=== PATIENT | male | born 1970 | race Caucasian/White ===

== ENCOUNTER 2017-01-26 01:28 | Inpatient (IN) | payer BC ==
[~2017-01-26] VITALS: Ht 185.4 cm; Wt 56.7 kg
[~2017-01-26 01:28] MED LIST: Acetaminophen PO; BUPR200T PO; CALC0.5C2 PO; LABE100T PO; METH10TA2 PO; NEFA100T PO; SEVE800T8 PO; SUCR1TAB26 PO
[2017-01-26] MEDS ORDERED: METR500T PO (02:11)
--- NOTE | 2017-01-26 02:53 | NUR ---
PT OUT OF UNIT FOR CT SCAN VIA WHEELCHAIR
--- NOTE | 2017-01-26 03:01 | NUR ---
PT BBACK FROM CT SCAN WITH NO DISTRESS NOTED
[2017-01-26 03:02] LABS: BASOPHILS # (AUTO) 0.1 K/uL (0.0-0.2); BASOPHILS % (AUTO) 0.9 % (0.0-2.0); EOSINOPHILS # (AUTO) 0.5 K/uL (0.0-0.7); EOSINOPHILS % (AUTO) 7.2 % (0.0-7.0); HEMATOCRIT 32.7 % (40.0-50.0); HEMOGLOBIN 11.1 g/dL (14.0-18.0); LYMPHOCYTES # (AUTO) 1.9 K/uL (0.8-4.8); LYMPHOCYTES % (AUTO) 31.1 % (20.5-51.5); MEAN CORPUSCULAR HEMOGLOBIN 29.5 uug (27.0-31.0); MEAN CORPUSCULAR HGB CONC 34 g/dL (32.0-37.0); MEAN CORPUSCULAR VOLUME 86.7 fL (82.0-92.0); MONOCYTES # (AUTO) 0.7 K/uL (0.1-1.30); MONOCYTES % (AUTO) 10.5 % (0.0-11.0); NEUTROPHILS # (AUTO) 3.1 K/uL (1.8-8.9); NEUTROPHILS % (AUTO) 50.3 % (38.5-71.5); PLATELET COUNT (AUTO) 287 K/uL (150-450); RED BLOOD CELL COUNT(AUTO) 3.78 MIL/uL (4.70-6.10); RED CELL DISTRIBUTION WIDTH 14.1 % (11.5-14.5); WHITE BLOOD COUNT (AUTO) 6.3 K/uL (4.0-11.2)
[2017-01-26 03:12] LABS: ALBUMIN 3.3 g/dL (3.4-5.0); BILIRUBIN,DIRECT 0.1 mg/dL (0.0-0.2); BILIRUBIN,TOTAL 0.4 mg/dL (0.2-1.0); CALCIUM 8.5 mg/dL (8.5-10.1); CREATININE 6.8 mg/dL (0.6-1.3); POTASSIUM 4.5 mmol/L (3.5-5.1); TOTAL PROTEIN, SERUM 6.5 g/dL (6.4-8.2)
--- NOTE | 2017-01-26 04:27 | NUR ---
[facility], spoke with cager operator Jessica, who states will have Carolina lama....
--- NOTE | 2017-01-26 04:42 | NUR ---
Pt. admitted to telemetry , under care of Dr. Figueroa,Belongs List completed, pt is alert, oriented x 4, no resp distress noted or reported upon transfer assessment.... pt transferred via gurney...
[2017-01-26] MEDS ORDERED: ONDANSETRON 4 MG/2 ML VIAL IV ONE (04:45)
[2017-01-26] MEDS ORDERED: MORPHINE SULFATE 4 MG/1 ML DISP.SYRIN IV ONE (04:45)
[2017-01-26] MEDS ORDERED: ONDANSETRON 4 MG/2 ML VIAL ONE (04:52)
[2017-01-26] MEDS ORDERED: MORPHINE SULFATE 4 MG/1 ML DISP.SYRIN ONE (04:52)
[2017-01-26] MEDS ORDERED: CLONIDINE HCL 0.1 MG TABLET PO ONE (05:30)
[2017-01-26] MEDS ORDERED: CLONIDINE HCL 0.1 MG TABLET ONE (05:39)
--- NOTE | 2017-01-26 05:55 | NUR ---
Received pt from ER, report given by KEL Aguilar.Pt sitting comfortably in the hospital bed. AOX3, ambulatory. On peritoneal dialysis, pt takes care of it at home.Urostomy at RLQ area, ostomy appears pinkish red in color.Cleansed the site (PD area and urostomy area) with NS, patted dry with sterile gauze, secured sterile dressing. Taken a picture and secured it in the chart. Lung sounds clear, heart sounds bounding and clear.
[2017-01-26 06:00] VITALS: BP 142/105
--- NOTE | 2017-01-26 07:30 | NUR ---
Report to FatoumataRN at the bedside, pt resting comfortably. Denies any pain at the moment (before he went to sleep) but requested for pain medicine (he takes Methadone at home) as PRN basis.BP is 150's (SBP) upon admission.
--- NOTE | 2017-01-26 08:00 | NUR ---
AWAKE ALERT COOPERATE WELL NO PAIN EAT BREAKFAST WITH GOOD APPETITE , ON FALL PRECAUTION CALL HORAN IN REACH
[2017-01-26] MEDS ORDERED: ACETAMINOPHEN 325 MG TABLET PO PRN (08:15)
[2017-01-26] MEDS ORDERED: ONDANSETRON 4 MG/2 ML VIAL IV PRN (08:15)
[2017-01-26] MEDS: CALCITRIOL 0.25 MCG CAPSULE PO SCH ×2 (08:50→17:01)
[2017-01-26] MEDS: LABETALOL HCL 100 MG TABLET PO SCH ×2 (08:50→17:01)
[2017-01-26] MEDS: METRONIDAZOLE 500 MG TABLET PO SCH ×3 (08:50→17:01)
[2017-01-26] MEDS ORDERED: MISCELLANEOUS MED XX SCH (09:00)
--- NOTE | 2017-01-26 09:00 | NUR ---
DR GONZALEZ SEE PATIENT AND LAB RESULT AND ORDER IN CHART
[2017-01-26] MEDS: METHADONE HCL 10 MG TABLET PO SCH ×2 (09:14→17:01)
[2017-01-26] MEDS: buPROPion SR 100 MG TABLET.SA PO SCH ×2 (09:14→20:51)
[2017-01-26 11:52] VITALS: BP 145/96
[2017-01-26] MEDS: SEVELAMER CARBONATE 800 MG TABLET PO SCH ×2 (12:38→17:01)
[2017-01-26] MEDS: SUCRALFATE 1 G TABLET PO SCH ×3 (12:38→20:50)
--- NOTE | 2017-01-26 14:00 | NUR ---
DR GONZALEZ WAS CALL REGARDING OWN MEDIOCINE AND NEW ORDER IN CHART
[2017-01-26 16:21] VITALS: BP 140/94
--- NOTE | 2017-01-26 17:00 | NUR ---
RESTING WELL NO SOB OR RESPIRATORY DISTRESS PAIN UNDER CONTROL HEMODYNAMIC STATUS STABLE CALL LIGHT WITHIN REACH AND INSTRUCTION TO USE WHEN NEED
[2017-01-26 19:00] VITALS: BP 146/95
--- NOTE | 2017-01-26 19:10 | NUR ---
Received report from KEL Ham.
--- NOTE | 2017-01-26 20:00 | NUR ---
Pt resting on his hospital bed. Awake and using his cell phone. Pt is getting ready for his Peritoneal dialysis.
--- NOTE | 2017-01-26 21:00 | NUR ---
Peritoneal dialysis started. Pt stated that his been doing this for more than a year now.
[2017-01-26] MEDS: HYDROMORPHONE 1 MG/1 ML DISP.SYRIN IV PRN (21:04)
--- NOTE | 2017-01-26 23:00 | NUR ---
Pt lying down on his bed, watching TV.He said its just hard to get asleep. Denies any pain. Encouraged to call for assistance or if he needs anything for pain, verbalized understanding.
[2017-01-27 00:01] VITALS: BP 145/95
[2017-01-27] MEDS: HYDROMORPHONE 1 MG/1 ML DISP.SYRIN IV PRN ×3 (01:29→20:05)
--- NOTE | 2017-01-27 01:30 | NUR ---
Pt requested for pain medicine, given Dilaudid .5mg/IVP, prepared pt to sleep, stretched linens, made him comfortable, took his things from his bed, placed in the chair.covered him with warm blanket.
--- NOTE | 2017-01-27 02:00 | NUR ---
Urostomy drained 500mls, miguel angel color urine. Peritoneal dialysis output was 1850 mls.
--- NOTE | 2017-01-27 03:30 | NUR ---
Pt resting /sleeping comfortably.
[2017-01-27 04:00] VITALS: BP 142/90
--- NOTE | 2017-01-27 05:00 | NUR ---
Resting/sleeping comfortably.Checking and monitoring periodically.
--- NOTE | 2017-01-27 07:18 | NUR ---
Pt remained asleep, breathing normally, given report to KEL Ham.
--- NOTE | 2017-01-27 08:00 | NUR ---
SLEPT WELL NO RESPIRATORY DISTRESS NO SOB OR PAIN ON FALL PRECAUTION CALL HORAN IN REACH
--- NOTE | 2017-01-27 08:30 | NUR ---
AWAKE AND EAT BREAKFAST WELL DR GONZALEZ SEEN PATIENT THIS AM NO NEW ORDER
[2017-01-27] MEDS: SUCRALFATE 1 G TABLET PO SCH ×4 (08:43→20:05)
[2017-01-27] MEDS: SEVELAMER CARBONATE 800 MG TABLET PO SCH ×3 (08:43→17:15)
[2017-01-27] MEDS: METHADONE HCL 10 MG TABLET PO SCH ×2 (08:44→17:16)
[2017-01-27] MEDS: METRONIDAZOLE 500 MG TABLET PO SCH ×3 (08:44→17:15)
[2017-01-27] MEDS: CALCITRIOL 0.25 MCG CAPSULE PO SCH ×2 (08:44→17:15)
[2017-01-27] MEDS: buPROPion SR 100 MG TABLET.SA PO SCH ×2 (08:44→20:05)
[2017-01-27] MEDS: LABETALOL HCL 100 MG TABLET PO SCH (08:45)
[2017-01-27] MEDS: NEFAZODONE PO SCH (08:45)
[2017-01-27 15:46] VITALS: BP 140/95
--- NOTE | 2017-01-27 16:30 | NUR ---
DR CAMARA SEE PATIENT AND TELE WAS DISCONTINUE
[2017-01-27] MEDS: CARVEDILOL 12.5 MG TABLET PO SCH (17:35)
--- NOTE | 2017-01-27 18:00 | NUR ---
RESTING HEMODYNAMIC STATUS STABLE ,PAIN UNDER CONTROL CALL HORAN WITHIN REACH
[2017-01-27 19:00] VITALS: BP 140/96
--- NOTE | 2017-01-27 19:00 | NUR ---
AWAKE ALERTX3 COMPLAINED OF GEN PAIN, DILAUDID .5 MG GIVEN
[2017-01-28] MEDS: HYDROMORPHONE 1 MG/1 ML DISP.SYRIN IV PRN ×2 (02:01→11:00)
[2017-01-28 04:00] VITALS: BP 141/87
--- NOTE | 2017-01-28 06:14 | NUR ---
SLEPT AT INTERVALS,COMPLAINED OF ABDOMINAL PAIN DILAUDID .5 MG GIVEN RELIEVED SLEPT AFTER.
[2017-01-28] MEDS: buPROPion SR 100 MG TABLET.SA PO SCH (08:12)
[2017-01-28] MEDS: CALCITRIOL 0.25 MCG CAPSULE PO SCH (08:12)
[2017-01-28] MEDS: SUCRALFATE 1 G TABLET PO SCH ×2 (08:12→11:00)
[2017-01-28] MEDS: SEVELAMER CARBONATE 800 MG TABLET PO SCH ×2 (08:14→11:00)
[2017-01-28] MEDS: METHADONE HCL 10 MG TABLET PO SCH (08:14)
[2017-01-28] MEDS: METRONIDAZOLE 500 MG TABLET PO SCH ×2 (08:14→12:05)
[2017-01-28] MEDS: CARVEDILOL 12.5 MG TABLET PO SCH (08:14)
[2017-01-28] MEDS: NEFAZODONE PO SCH (08:16)
[2017-01-28] MEDS ORDERED: CARV12.52 PO (08:50)
[2017-01-28 11:28] VITALS: BP 155/104
--- NOTE | 2017-01-28 11:45 | NUR ---
Patient resting comfortably in bed in no acute distress after pain med given earlier today. Independently taking care of his own peritoneal dialysis. Ordered to be discharged today.Safety and comfort provided by staff.
[2017-01-28 15:46] VITALS: BP 154/106
--- NOTE | 2017-01-28 15:58 | NUR ---
Pt c/o low back pain during early afternoon. Medicated as ordered with relief. Discharge instructions given and with copies given to patient. Urostomy and peritoneal dressings changed prior to discharge. Both sites unremarkable.Photos taken and placed on chart. All belongings accounted for. Discharged home by car. Taken to car by w/c in no acute distress or c/o pain.
== END 2017-01-28 15:58 | disposition home or self-care (01) | DRG 683 ==
LOC: ER 01:44 → TELE 04:33 → MED 01-27 17:37
PROVIDERS: ADMIT Internal Medicine; ATTEND Internal Medicine
DX: I12.9 Hypertensive chronic kidney disease with stage 1 through stage 4 chronic kidney disease, or unspecified chronic kidney disease (principal); I31.3 Pericardial effusion (noninflammatory); I42.9 Cardiomyopathy, unspecified; N25.81 Secondary hyperparathyroidism of renal origin; N13.30 Unspecified hydronephrosis; N18.6 End stage renal disease; K21.9 Gastro-esophageal reflux disease without esophagitis; N25.0 Renal osteodystrophy; F32.9 Major depressive disorder, single episode, unspecified; G89.29 Other chronic pain; D64.9 Anemia, unspecified; Z87.440 Personal history of urinary (tract) infections; Z79.899 Other long term (current) drug therapy; Z99.2 Dependence on renal dialysis
CPT/HCPCS: 36415; 70030-TC; 71250; 85025; 85730; 93005; 93307; A4663; J1170; J2270; J2405

== ENCOUNTER 2017-05-18 18:48 | Inpatient (IN) | payer BC ==
[~2017-05-18] VITALS: Ht 185.4 cm; Wt 55.0 kg
[~2017-05-18 18:48] MED LIST changes: +CARV12.52 PO; -LABE100T PO; +METR500T PO; -SUCR1TAB26 PO; +SUCR1TAB31 PO
[2017-05-18] MEDS ORDERED: CIPR500T5 PO (19:00)
[2017-05-18] MEDS ORDERED: ONDA4TAB8 SL (19:01)
[2017-05-18] MEDS ORDERED: OXYCODONE/APAP 5-325 MG TABLET PO ONE (19:15)
[2017-05-18] MEDS ORDERED: ONDANSETRON 4 MG/2 ML VIAL IV ONE (19:15)
[2017-05-18] MEDS ORDERED: IV NORMAL SALINE 1000 ML BAG IV ONE (19:15)
[2017-05-18] MEDS ORDERED: CEFTRIAXONE 1 G in IV DEXTROSE 5% 50 ML IV ONE (19:15)
[2017-05-18] MEDS ORDERED: OXYCODONE/APAP 5-325 MG TABLET ONE (19:40)
[2017-05-18] MEDS ORDERED: CEFTRIAXONE 1 G VIAL ONE (19:41)
[2017-05-18] MEDS ORDERED: ONDANSETRON 4 MG/2 ML VIAL ONE (19:41)
[2017-05-18 19:53] LABS: BASOPHILS % (AUTO) 0.9 % (0.0-2.0); EOSINOPHILS # (AUTO) 0.3 K/uL (0.0-0.7); HEMATOCRIT 37.1 % (40-50); HEMOGLOBIN 12.2 G/DL (14.0-18.0); LYMPHOCYTES # (AUTO) 1.3 K/UL (0.8-4.8); LYMPHOCYTES % (AUTO) 23.7 % (20.5-51.5); MEAN CORPUSCULAR HEMOGLOBIN 29.2 UUG (27.0-31.0); MEAN CORPUSCULAR HGB CONC 33 g/dL (32.0-37.0); MEAN CORPUSCULAR VOLUME 88.6 FL (82.0-92.0); MONOCYTES # (AUTO) 0.6 K/UL (0.1-1.30); MONOCYTES % (AUTO) 10.7 % (0.0-11.0); NEUTROPHILS # (AUTO) 3.1 K/UL (1.8-8.9); NEUTROPHILS % (AUTO) 59.7 % (38.5-71.5); PLATELET COUNT (AUTO) 354 K/UL (150-450); RED BLOOD CELL COUNT(AUTO) 4.19 MIL/UL (4.7-6.1); WHITE BLOOD COUNT (AUTO) 5.3 K/UL (4.0-11.2)
[2017-05-18 19:56] LABS: POTASSIUM 4.8 mmol/L (3.5-5.1)
--- NOTE | 2017-05-18 19:58 | NUR ---
Pt to room c/o dizziness, vomiting and intermittent sharp abd pain. Pt seen by MD. IV established, labs drawn and sent. Perotineal fluid collected and sent. UA collected and sent. EKG obtained and given to Dr. Ayoub. Pt medicated for pain and nausea, will monitor for effects of medication. Fluid bolus infusing freely to gravity. ABT infusion started, will monitor for any adverse reactions. Pt refused chest xray. Dr. Ayoub notified. Pt resting in position of comfort for self.
[2017-05-18 20:13] LABS: BILIRUBIN,DIRECT 0.1 mg/dL (0.0-0.2); BILIRUBIN,TOTAL 0.4 mg/dL (0.2-1.0); TOTAL PROTEIN, SERUM 7.3 g/dL (6.4-8.2)
[2017-05-18 20:23] LABS: CREATININE 8.2 mg/dL (0.6-1.3)
[2017-05-18 20:29] LABS: *CLARITY,URINE CLOUDY (CLEAR); *COLOR,URINE YELLOW (YELLOW); *PROTEIN,URINE 2+ (NEGATIVE); PH,URINE 8.5 (5.0-8.0); UGLUCOSE NEGATIVE (NEGATIVE)
[2017-05-18 20:30] LABS: *BILIRUBIN,URIN NEGATIVE (NEGATIVE); *BLOOD, URINE 2+ (NEGATIVE); *KETONES,URINE NEGATIVE (NEGATIVE); *UROBILINOGEN,URINE 0.2 E.U./dl (NORMAL); LEUKOCYTE ESTERASE ,URINE 2+ (NEGATIVE); NITRITE, URINE NEGATIVE (NEGATIVE)
[2017-05-18 20:42] LABS: MAGNESIUM 1.9 mg/dL (1.8-2.4); PHOSPHOROUS 4.9 mg/dL (2.5-4.9)
[2017-05-18 20:43] LABS: BACTERIA,URINE MANY /HPF (NONE SEEN); MUCUS,URINE MODERATE /LPF (0-FEW)
[2017-05-18 20:45] LABS: WBC,URINE 20-50 /HPF (0-3)
--- NOTE | 2017-05-18 21:04 | NUR ---
Pt conts to c/o severe abd pain. Dr. Ayoub notified. Awaiting further orders
[2017-05-18] MEDS ORDERED: NITROFURANTOIN/NITROFURAN MAC 100 MG CAPSULE PO ONE (21:15)
[2017-05-18] MEDS ORDERED: HYDROMORPHONE HCL 2 MG TABLET PO ONE (21:30)
--- NOTE | 2017-05-18 21:36 | NUR ---
Pt medicated for discomfort. Will monitor for effects of medication. Pt resting in position of comfort for self.
[2017-05-18] MEDS ORDERED: NITROFURANTOIN/NITROFURAN MAC 100 MG CAPSULE ONE (21:39)
[2017-05-18] MEDS ORDERED: HYDROMORPHONE HCL 2 MG TABLET ONE (21:39)
--- NOTE | 2017-05-18 21:44 | NUR ---
Rickey cuenca paged for Dr. Ayoub
--- NOTE | 2017-05-18 22:30 | NUR ---
second page for V.I.P quality control clerk
--- NOTE | 2017-05-18 22:41 | NUR ---
Dr. Ayoub spoke with Dr. Myles. Dr. Ayoub notified of pts blood pressure. Awaiting further orders.
[2017-05-18] MEDS ORDERED: ENALAPRILAT DIHYDRATE 1.25 MG/1 ML VIAL IV ONE ×2 (22:45→22:57)
[2017-05-18] MEDS ORDERED: CLONIDINE HCL 0.1 MG TABLET PO ONE (22:45)
--- NOTE | 2017-05-18 22:49 | NUR ---
Pt medicated for elevated blood pressure, will monitor for effects of medication
[2017-05-18] MEDS ORDERED: CLONIDINE HCL 0.1 MG TABLET ONE (22:56)
[2017-05-18] MEDS ORDERED: LABETALOL HCL 100 MG/20 ML VIAL IV ONE (23:15)
--- NOTE | 2017-05-18 23:18 | NUR ---
MD notified of pts cont elevated bp. Awaiting further orders.
[2017-05-18] MEDS ORDERED: LABETALOL HCL 100 MG/20 ML VIAL ONE (23:32)
[2017-05-19] MEDS ORDERED: HYDROMORPHONE 1 MG/1 ML DISP.SYRIN IV ONE (00:15)
[2017-05-19] MEDS ORDERED: LABETALOL HCL 100 MG/20 ML VIAL IV ONE (00:15)
--- NOTE | 2017-05-19 00:15 | NUR ---
BP remains elevated and pt c/o pain getting worse. MD notified. Pt medicated for pain and elevated bp. Will monitor for effects of medication. Pt resting in position of comfort for self.
[2017-05-19] MEDS ORDERED: HYDROMORPHONE 1 MG/1 ML DISP.SYRIN ONE ×2 (00:19→05:28)
--- NOTE | 2017-05-19 01:05 | NUR ---
PER SPECIAL EDUCATION PARA PROFESSIONAL, QUANG GARCÍA...
--- NOTE | 2017-05-19 01:30 | NUR ---
Pt resting in position of comfort for self. Sts pain improving with medication.
--- NOTE | 2017-05-19 02:21 | NUR ---
BP remains elevated. Dr. Ayoub calling answering service to reach Dr. Myles.
--- NOTE | 2017-05-19 02:23 | NUR ---
Dr. Ayoub spoke with Dr. Myles and pt upgraded to [facility] for elevated blood pressure
[2017-05-19] MEDS ORDERED: CLONIDINE HCL 0.1 MG TABLET PO ONE (02:30)
[2017-05-19] MEDS ORDERED: CLONIDINE HCL 0.1 MG TABLET ONE (02:55)
--- NOTE | 2017-05-19 03:18 | NUR ---
Report called to KEL Vidal. Preparing to transfer pt to the floor.
--- NOTE | 2017-05-19 03:30 | NUR ---
Received admission report from KEL Holland
[2017-05-19 03:54] VITALS: BP 168/98
[2017-05-19] MEDS ORDERED: hydrALAZINE HCL 20 MG/1 ML VIAL IV PRN (05:00)
[2017-05-19] MEDS ORDERED: HYDROMORPHONE 1 MG/1 ML DISP.SYRIN IV PRN (05:00)
--- NOTE | 2017-05-19 05:06 | NUR ---
Admitted patient to [facility] as Md ordered. Pt AAO x 3 ambulatory and able to make needs known. Routine admission care done. Plan of care initiated.
--- NOTE | 2017-05-19 05:25 | NUR ---
Medicated for pain as ordered. Snack provided as requested, consumed 100%. Will monitor.
--- NOTE | 2017-05-19 08:00 | NUR ---
asleep but arouses easily. states pain tolerable at this time, wanted to sleep for now- will have breakfast later, tele SR 70's, expalined plan of care- verbalized understanding, peritoneal dialysis in place. pt takes care of his own dialysis, urostomy tube draining yellow urine, call light within reach
[2017-05-19 08:01] VITALS: BP 144/90
[2017-05-19] MEDS: SEVELAMER CARBONATE 800 MG TABLET PO SCH ×3 (08:44→18:49)
[2017-05-19] MEDS: CALCITRIOL 0.25 MCG CAPSULE PO SCH ×2 (08:45→17:30)
[2017-05-19] MEDS: buPROPion SR 100 MG TABLET.SA PO SCH ×2 (08:45→18:52)
--- NOTE | 2017-05-19 08:45 | NUR ---
states will not take routine methadone but will take his iv pain med instead, Dr Myles here visiting
[2017-05-19] MEDS: METHADONE HCL 10 MG TABLET PO SCH ×2 (08:50→20:42)
[2017-05-19] MEDS ORDERED: CIPROFLOXACIN HCL 250 MG TABLET PO SCH (09:00)
[2017-05-19] MEDS ORDERED: NEFAZODONE HCL 100 MG PO SCH (09:00)
[2017-05-19] MEDS: HYDROMORPHONE 1 MG/1 ML DISP.SYRIN IM PRN ×3 (09:06→19:32)
--- NOTE | 2017-05-19 09:06 | NUR ---
medicated for c/o right flank pain with Dilaudid 0.5mg iv as prn
[2017-05-19] MEDS: NEFAZODONE PO SCH (09:44)
[2017-05-19] MEDS ORDERED: GENTAMICIN SULFATE INJ 80 MG in IV DEXTROSE 5% 50 ML IV ONE (10:30)
[2017-05-19] MEDS ORDERED: VANCOMYCIN IV 1,250 MG in IV DEXTROSE 5% 500 ML IV ONE (11:00)
--- NOTE | 2017-05-19 11:02 | NUR ---
PHARMACY NOTES; VANCOMYCIN AND GENTAMICIN DOSING Subjective: 46 yo male; doing self peritoneal dialysis ; MD ordered abx for possible UTI (pt is complaining of abdominal pain over the right kidney) one dose of vancomycin and one dose of gentamicin Objective : BUN/SCR 84/8.2; TEMP 97.8; WBC 5.3; dosing wt 121 lbs Assessment/plan: will dose vancomycin loading dose of 23mg/kg ~ 1250 mg x 1 and Gentamicin 1.5 mg/kg ~ 80 mg x 1 . Data suggest to re-measure in 7 days and if levels within therapeutic range continue with 17mg/kg of vanco and 1mg/kg of gent.
--- NOTE | 2017-05-19 11:30 | NUR ---
iv Abx gentamycin given - no reaction noted, tolerated well
[2017-05-19 11:54] VITALS: BP 143/91
[2017-05-19] MEDS ORDERED: GENTAMICIN SULFATE 20 MG/2 ML VIAL IV ONE (13:00)
[2017-05-19] MEDS ORDERED: ONDANSETRON ODT 4 MG TAB.RAPDIS SL PRN (14:00)
--- NOTE | 2017-05-19 14:00 | NUR ---
iv vancomycin completed, no reaction noted
[2017-05-19 16:34] VITALS: BP 153/91
--- NOTE | 2017-05-19 17:41 | NUR ---
pt starting to do his peritoneal dialysis, states will eat dinner later and take his Renvela later when he eats
--- NOTE | 2017-05-19 18:55 | NUR ---
resting in bed, no distress noted, states Wellbutrin takes them at 0800 and 1500 and if he takes them late, he wouldn't be able to sleep at nite requested now and gave it, on his last bag form his peritonfeal dialysis- tolerating well, all needs attended and met, call light within reach, was medicated with Dilaudid 0.5 mg iv x 2 this shift
--- NOTE | 2017-05-19 19:10 | NUR ---
Bedside reporting with KEL Roberts. Patient awake, on bed having Peritoneal dialysis. Complaint a tolerable pain at this time. Urostomy intact, patent with moderate amount of clear yellow output. Continue care as planned.
--- NOTE | 2017-05-19 19:32 | NUR ---
Dilaudid given for complaint of kidney pain in scale 8/10. Will monitor effect.
--- NOTE | 2017-05-19 19:39 | NUR ---
BP 164/99. Pt denies s/s of hypertension. Apresoline given as needed and ordered. Will monitor effect.
--- NOTE | 2017-05-19 19:47 | NUR ---
Patient was given prune juice for complaint of no BM x 2 days. Will monitor.
[2017-05-19 20:00] VITALS: BP 164/99
--- NOTE | 2017-05-19 21:24 | NUR ---
Patient complaining of severe headache, VS rechecked 164/95, 81, 20 100% 98.1. Assisted turning and repositioning for comfort. Patient claimed that maybe he did the dialysis too fast. He claimed that he is using machine at home and rate was controlled. Will monitor since he refused any pharmaceutical remedy at this time.
[2017-05-20] VITALS: BP 141/89
[2017-05-20] MEDS: HYDROMORPHONE 1 MG/1 ML DISP.SYRIN IM PRN ×2 (00:10→09:04)
[2017-05-20] MEDS: ACETAMINOPHEN 325 MG TABLET PO PRN ×2 (03:22→08:01)
[2017-05-20 03:32] VITALS: BP 143/87
--- NOTE | 2017-05-20 03:36 | NUR ---
0010 Pain medication given this time, complaining of right lower abdomenal pain. Continue to monitor.
--- NOTE | 2017-05-20 05:48 | NUR ---
Still sleeping at this time. Medicated 3x for pain with relief. No further complaint presented. BP controlled by Apresoline. Peritoneal dialysis performed independently without any complication and well tolerated with 3750cc output per patient. All needs attended and met. No significant event reported all night.
--- NOTE | 2017-05-20 07:06 | NUR ---
Bedside reporting with KEL Gates
--- NOTE | 2017-05-20 07:25 | NUR ---
RECEIVED REPORT FROM SALES DONOR RECRUITMENT REPRESENTATIVE NURSE, PATIENT IN BED, INTERMITTENTLY SLEEPING. PATIENT BECAME AGITATED THAT THE IV IN IN ANTECUBITAL AREA IS CAUSING HIM STRESS, AND THAT HE HAD A HEADACHE. MEDICATIONS ADMINISTERED FOR HEADACHE, AND A NEW IV STARTED ON RIGHT FOREARM.
[2017-05-20] MEDS: SEVELAMER CARBONATE 800 MG TABLET PO SCH ×2 (08:00→12:00)
[2017-05-20] MEDS: CALCITRIOL 0.25 MCG CAPSULE PO SCH (08:00)
[2017-05-20] MEDS: buPROPion SR 100 MG TABLET.SA PO SCH (08:00)
[2017-05-20] MEDS: METHADONE HCL 10 MG TABLET PO SCH (08:02)
[2017-05-20] MEDS: NEFAZODONE PO SCH (08:02)
--- NOTE | 2017-05-20 09:00 | NUR ---
PATIENT VERY FRUSTRATED THAT HE HAS A HEADACHE THAT IS NOT RELIEVED BY TYLENOL GIVEN. PATIENT ASKED FOR DILAUDID AFTER ONE EPISODE OF EMESIS.
[2017-05-20 11:13] VITALS: BP 177/97
--- NOTE | 2017-05-20 12:58 | NUR ---
PATIENT HAS BEEN DISCHARGED, BLOOD PRESSURE HAS REDUCED FROM PRIOR ELEVATED LEVEL, AND HEADACHE IS "MOSTLY GONE" REPORTED BY PATIENT.
--- NOTE | 2017-05-20 13:11 | NUR ---
PATIENT HAS BEEN TRANSPORTED TO [facility] BY VOLUNTEER AT 1311 AND HAS LEFT THE UNIT.
== END 2017-05-20 13:15 | disposition home or self-care (01) | DRG 371 ==
LOC: ER 18:49 → MED 21:55 → TELE-TD 05-19 03:01 → MED 05-20 09:11
PROVIDERS: ADMIT Internal Medicine; ATTEND Internal Medicine
DX: K65.9 Peritonitis, unspecified (principal); N18.6 End stage renal disease; I13.11 Hypertensive heart and chronic kidney disease without heart failure, with stage 5 chronic kidney disease, or end stage renal disease; N39.0 Urinary tract infection, site not specified; D64.9 Anemia, unspecified; K21.9 Gastro-esophageal reflux disease without esophagitis; Z99.2 Dependence on renal dialysis; Z79.891 Long term (current) use of opiate analgesic; Z79.899 Other long term (current) drug therapy; G89.4 Chronic pain syndrome; Z98.890 Other specified postprocedural states
CPT/HCPCS: 36415; 83690; 83735; 84100; 85025; 87070; 87086; 87205; 93005; J0360; J0696; J1170; J1580; J2405; J3370; J3490; J7030; J7060; Q0162

== ENCOUNTER 2017-06-17 16:59 | Emergency (ER) | payer BC ==
[~2017-06-17] VITALS: Ht 185.4 cm; Wt 53.5 kg
[~2017-06-17 16:59] MED LIST changes: -CARV12.52 PO; +CIPR500T5 PO; -METR500T PO; +ONDA4TAB8 SL; -SUCR1TAB31 PO
[2017-06-17] MEDS ORDERED: METR500T PO (17:20)
[2017-06-17] MEDS ORDERED: LABE300T PO (17:20)
[2017-06-17] MEDS ORDERED: HYDR4TAB4 PO (17:20)
[2017-06-17] MEDS ORDERED: MECLIZINE HCL 25 MG TABLET PO ONE (17:30)
[2017-06-17] MEDS ORDERED: LORAZEPAM 2 MG/1 ML VIAL IV ONE (17:30)
[2017-06-17 17:50] LABS: BASOPHILS % (AUTO) 1.1 % (0.0-2.0); EOSINOPHILS # (AUTO) 0.3 K/uL (0.0-0.7); EOSINOPHILS % (AUTO) 5.9 % (0.0-7.0); HEMATOCRIT 36.8 % (40-50); HEMOGLOBIN 11.9 G/DL (14.0-18.0); LYMPHOCYTES # (AUTO) 1.3 K/UL (0.8-4.8); LYMPHOCYTES % (AUTO) 30.5 % (20.5-51.5); MEAN CORPUSCULAR HEMOGLOBIN 28.9 UUG (27.0-31.0); MEAN CORPUSCULAR HGB CONC 32 g/dL (32.0-37.0); MEAN CORPUSCULAR VOLUME 89.8 FL (82.0-92.0); MONOCYTES # (AUTO) 0.4 K/UL (0.1-1.30); NEUTROPHILS # (AUTO) 2.3 K/UL (1.8-8.9); NEUTROPHILS % (AUTO) 52.5 % (38.5-71.5); PLATELET COUNT (AUTO) 286 K/UL (150-450); WHITE BLOOD COUNT (AUTO) 4.3 K/UL (4.0-11.2)
[2017-06-17 18:01] LABS: BILIRUBIN,DIRECT 0.1 mg/dL (0.0-0.2); BILIRUBIN,TOTAL 0.4 mg/dL (0.2-1.0); PHOSPHOROUS 6.4 mg/dL (2.5-4.9); TOTAL PROTEIN, SERUM 6.4 g/dL (6.4-8.2)
[2017-06-17] MEDS ORDERED: LORAZEPAM 2 MG/1 ML VIAL ONE (18:01)
[2017-06-17 18:02] LABS: CREATININE 7.1 mg/dL (0.6-1.3); POTASSIUM 4.7 mmol/L (3.5-5.1)
[2017-06-17] MEDS ORDERED: MECLIZINE HCL 25 MG TABLET ONE (18:02)
--- NOTE | 2017-06-17 18:15 | NUR ---
Pt transferred to CT scan via [facility].
--- NOTE | 2017-06-17 18:55 | NUR ---
Pt remains awake,alert.Moves all extremities.Seen,examined by .
--- NOTE | 2017-06-17 18:55 | NUR ---
2nd call placed to [facility] nephrology, Dr. Salomon will be paged.
--- NOTE | 2017-06-17 19:46 | NUR ---
Patient discharged to home in stable conditon. Written and verbal after care instructions given. Patient verbalizes understanding of instructions.
== END 2017-06-17 19:50 | disposition home or self-care (01) ==
LOC: ER 17:01
DX: R42 Dizziness and giddiness (principal); I12.9 Hypertensive chronic kidney disease with stage 1 through stage 4 chronic kidney disease, or unspecified chronic kidney disease; N18.9 Chronic kidney disease, unspecified; F32.9 Major depressive disorder, single episode, unspecified; K21.9 Gastro-esophageal reflux disease without esophagitis; R51 Headache
CPT/HCPCS: 36415; 70450; 80048; 80076; 82962; 83735; 84100; 85025; 85730; 93005; 96374; 99285; A4663; J2060; J8597

== ENCOUNTER 2017-07-26 22:35 | Inpatient (IN) | payer BC ==
[~2017-07-26] VITALS: Ht 185.4 cm; Wt 56.2 kg
[~2017-07-26 22:35] MED LIST changes: -CIPR500T5 PO; +HYDR4TAB4 PO; +LABE300T PO; +METR500T PO
--- NOTE | 2017-07-26 22:40 | NUR ---
Pt is received alert, responsive as he came in c/o None Radiating chest pain , he descrising pain as pressure Tightness that started 1hr ago. His care continue with EKG, ASA and Nitroquick 0.4mg SL is given as ordered as he is been monitor closely as lab work is done.
[2017-07-26 23:04] LABS: BASOPHILS % (AUTO) 0.6 % (0.0-2.0); EOSINOPHILS # (AUTO) 0.1 K/uL (0.0-0.7); HEMATOCRIT 35.1 % (40-50); HEMOGLOBIN 11.5 G/DL (14.0-18.0); LYMPHOCYTES # (AUTO) 1.5 K/UL (0.8-4.8); LYMPHOCYTES % (AUTO) 34.6 % (20.5-51.5); MEAN CORPUSCULAR HEMOGLOBIN 29.4 UUG (27.0-31.0); MEAN CORPUSCULAR HGB CONC 33 g/dL (32.0-37.0); MEAN CORPUSCULAR VOLUME 89.9 FL (82.0-92.0); MONOCYTES # (AUTO) 0.5 K/UL (0.1-1.30); MONOCYTES % (AUTO) 10.7 % (0.0-11.0); NEUTROPHILS # (AUTO) 2.3 K/UL (1.8-8.9); NEUTROPHILS % (AUTO) 51.1 % (38.5-71.5); PLATELET COUNT (AUTO) 261 K/UL (150-450); RED BLOOD CELL COUNT(AUTO) 3.91 MIL/UL (4.7-6.1); WHITE BLOOD COUNT (AUTO) 4.4 K/UL (4.0-11.2)
[2017-07-26 23:12] LABS: POTASSIUM 4.4 mmol/L (3.5-5.1)
[2017-07-26 23:15] LABS: CREATININE 7.6 mg/dL (0.6-1.3)
[2017-07-26 23:18] LABS: BILIRUBIN,DIRECT 0.1 mg/dL (0.0-0.2); BILIRUBIN,TOTAL 0.4 mg/dL (0.2-1.0); TOTAL PROTEIN, SERUM 6.3 g/dL (6.4-8.2)
--- NOTE | 2017-07-26 23:41 | NUR ---
Pt remain alert, responsive as ASA 162MG PO and Nitroquick 0.4mg SL noted effective with blood pressive now is 153/103. His care continue as he is been monitor closely as DR. Bedoya is been at [phone].
[2017-07-26] MEDS ORDERED: LABE200T PO (23:44)
[2017-07-26] MEDS ORDERED: CARV12.52 PO (23:44)
--- NOTE | 2017-07-27 00:15 | NUR ---
Pt is resting in bed as he is been admitted to Tele room 205 on the 2nd floor under the care off DR. Salomon and resport is given to the receiving nurse as his care continue.
--- NOTE | 2017-07-27 00:32 | NUR ---
PATIENT TRANSFERRED FROM ER, ADMITTED INTO ROOM 205 - TELEMETRY IN WHEEL CHAIR. AMBULATORY. NO FALLS/INJURY NOTED. STABLE CONDITION, NO DISTRESS NOTED.
--- NOTE | 2017-07-27 00:45 | NUR ---
PATIENT'S BELONGINGS INCLUDED MEDICATIONS FROM HOME THAT HE HAS IN A BAG. MULTIPLE PILL BOTTLES AND MIXTURE OF TABLETS LEFT INSIDE OF BAG. PATIENT REFUSED TO HAVE MEDICATIONS CHECKED AND WANTED HIS BAG NEXT TO HIM. WILL ENDORSE TO PHARMACY TO HAVE PATIENT'S HOME MEDICATIONS CHECKED.
[2017-07-27 00:50] VITALS: BP 168/106
--- NOTE | 2017-07-27 02:00 | NUR ---
PATIENT NEEDED TO MOVE HIS CAR THAT WAS PARKED IN THE RED ZONE IN FRONT OF ER. SECURITY CALLED TO ESCORT HIM OUT TO HIS CAR BUT PATIENT LEFT WITHOUT FILAMENT TESTER AND VERBALIZED "I CAN'T WAIT ANY LONGER FOR THEM". PATIENT WAS FOLLOWED TO SECOND FLOOR ELEVATOR AND ELEVATOR DOOR HELD. AT THIS POINT PATIENT VERBALIZED "I'M GOING TO ONE MORE MINUTE AND IF THE SECURITY STILL HAS COME, IM PUSHING YOU AWAY FROM THE ELEVATOR". PATIENT PUSHED NURSE (MYSELF) OUT FROM ELEVATOR DOOR AND ELEVATOR DOOR CLOSED. PATIENT WAS CONFRONTED BY SECURITY AND NURSE FOLLOWED PATIENT TO HIS CAR. PATIENT MOVED HIS CAR INTO THE HOSPITAL PARKING LOT, PICKED UP PERITONEAL DIALYSIS EQUIPMENT THAT WAS LEFT INSIDE HIS CAR. PATIENT SAFELY INSIDE HIS ROOM, IN STABLE CONDITION, NO DISTRESS NOTED.
[2017-07-27 04:00] VITALS: BP 176/105
--- NOTE | 2017-07-27 04:25 | NUR ---
PATIENT'S BP: 176/105. PATIENT VERBALIZES THE BP READING IS AROUND HIS BASELINE AT THIS TIME OF DAY. PATIENT REGULARLY CHECKS BLOOD PRESSURE THROUGHOUT THE NIGHT AT HOME.
--- NOTE | 2017-07-27 06:00 | NUR ---
PATIENT GIVEN COREG 12.5 MG AT 0600. MEDICATION WAS SUPPOSED TO BE GIVEN AT 0900 BUT PATIENT'S BP WAS AT 172/107. PATIENT IN STABLE CONDITION, NO SIGNS OF DISTRESS.
[2017-07-27 11:45] VITALS: BP 163/104
[2017-07-27 15:15] VITALS: BP 177/107
--- NOTE | 2017-07-27 19:00 | NUR ---
PT. RESTING IN BED MOST OF SHIFT. TELE SR. PT. OWN HOME MEDS BROUGHT TO THE HOSPITAL REVIEWED WITH PHARMACIST AND BROUGHT DOWN IN SEALED BAGS. PT. REQUESTED DILAUDID PO (TAKING AT HOME ALREADY FOR CHRONIC BACK PAIN) AND ORDER OBTAINED. FLAGYL ORDER CHANGED TO TID. PT. PERFORMING OWN PERITONEAL DIALYSIS THIS EVENING. GOOD APPETITE. NO ACUTE DISTRESS.
--- NOTE | 2017-07-27 19:30 | NUR ---
Received pt in bed, resting comfortably. AAO x 3. On Telemetry, monitor showing sinus rhythm/sinus tachycardia with HR 91. No acute distress noted. Pt denies pain or discomfort at this time. Right AC 20g patent and intact, heplock. All safety measures and fall precautions maintained. Call light within reach. Will continue to monitor.
[2017-07-27 20:00] VITALS: BP 165/100
--- NOTE | 2017-07-27 20:55 | NUR ---
Pt refused Lipitor. Offered x 3 but pt stated that his "cholesterol is always under control". Risks and benefits explained. Will continue to monitor.
[2017-07-28] VITALS: BP 177/108
[2017-07-28 04:00] VITALS: BP 133/92
--- NOTE | 2017-07-28 07:00 | NUR ---
Pt slept intermittently throughout the evening. Tolerated all medications well. Denies pain or discomfort currently. No acute distress noted. On Telemetry, monitor showing normal sinus rhythm with HR 78. All safety measures and fall precautions maintained. Call light within reach.
[2017-07-28 07:45] LABS: BASOPHILS % (AUTO) 0.9 % (0.0-2.0); EOSINOPHILS # (AUTO) 0.1 K/uL (0.0-0.7); EOSINOPHILS % (AUTO) 3.6 % (0.0-7.0); HEMATOCRIT 34.3 % (36.7-47.1); HEMOGLOBIN 11.7 g/dL (12.5-16.3); LYMPHOCYTES # (AUTO) 1.4 K/uL (20.0-40.0); LYMPHOCYTES % (AUTO) 33.5 % (20.5-51.5); MEAN CORPUSCULAR HEMOGLOBIN 30.5 uug (23.8-33.4); MEAN CORPUSCULAR HGB CONC 34 g/dL (32.5-36.3); MEAN CORPUSCULAR VOLUME 89.3 fL (73.0-96.2); MONOCYTES # (AUTO) 0.4 K/uL (2.0-10.0); MONOCYTES % (AUTO) 9.9 % (0.0-11.0); NEUTROPHILS # (AUTO) 2.2 K/uL (1.8-8.9); NEUTROPHILS % (AUTO) 52.1 % (38.5-71.5); PLATELET COUNT (AUTO) 233 K/uL (152-348); RED BLOOD CELL COUNT(AUTO) 3.84 MIL/uL (4.06-5.63); WHITE BLOOD COUNT (AUTO) 4.2 K/uL (3.6-10.2)
[2017-07-28 07:51] LABS: BILIRUBIN,TOTAL 0.4 mg/dL (0.2-1.0); MAGNESIUM 1.7 mg/dL (1.8-2.4); PHOSPHOROUS 5.4 mg/dL (2.5-4.9); POTASSIUM 4.7 mmol/L (3.5-5.1); TOTAL PROTEIN, SERUM 6.3 g/dL (6.4-8.2)
[2017-07-28 07:52] LABS: CREATININE 7.6 mg/dL (0.6-1.3)
[2017-07-28 10:00] VITALS: BP 108/73
[2017-07-28 11:11] VITALS: BP 107/69
[2017-07-28 15:57] VITALS: BP 131/90
--- NOTE | 2017-07-28 18:00 | NUR ---
Slept most of the day,no acute distress noted or voiced
[2017-07-28] MEDS ORDERED: VALS160T2 PO (18:15)
[2017-07-28] MEDS ORDERED: ATOR20TA PO (18:15)
[2017-07-28] MEDS ORDERED: NIFE30TA2 PO (18:15)
[2017-07-28 20:00] VITALS: BP 130/87
--- NOTE | 2017-07-28 22:00 | NUR ---
Patient in room having self peritonial dialysis, cooperative w/ care tolerated night p.o meds. Medicated for pain PRN. Vital signs stable. Seen & examined by engineering technician. Tele was d/cd.
[2017-07-29 05:41] VITALS: BP 135/88
--- NOTE | 2017-07-29 06:00 | NUR ---
No significant change, patient denies chest pain, vital signs are WNL. No acute resp. distress.
--- NOTE | 2017-07-29 08:00 | NUR ---
PT AWAKE IN BED, SELF PERITONIAL DIALYSIS COMPLETE. BAG EMPTIED 1850ML. NO NEEDS AT THIS TIME, DISCHARGE NOTED. WILL FOLLOW DISCHARGE PROTOCOL, ALL SAFETY AND COMFORT MEASURES ATTENDED TO, CALL LIGHT IN REACH
[2017-07-29 10:49] VITALS: BP 151/100
--- NOTE | 2017-07-29 11:43 | NUR ---
DISCHARGE PROTOCOL FOLLOWED, PT REFUSED PAPERWORK. ALL FORMS SIGNED, ALL BELONGINGS ACCOUNTED FOR AND SENT WITH PT. MEDICATIONS RETURNED TO PATIENT. PICTURES TAKEN AND PLACED IN CHART. IV REMOVED WITH NO REDNESS OR IRRITATION NOTED, ID BAND REMOVED. PT TAKEN DOWN IN WHEELCHAIR WITH JAVIER
== END 2017-07-29 11:45 | disposition home or self-care (01) | DRG 682 ==
LOC: ER 22:36 → TELE 07-27 00:10 → MED 07-28 20:52
PROVIDERS: ADMIT Internal Medicine; ATTEND Internal Medicine
PROC: 3E1M39Z Irrigation of Peritoneal Cavity using Dialysate, Percutaneous Approach (ICD-10-PCS; principal; 2017-07-27)
DX: I12.0 Hypertensive chronic kidney disease with stage 5 chronic kidney disease or end stage renal disease (principal); N18.6 End stage renal disease; I42.9 Cardiomyopathy, unspecified; Z99.2 Dependence on renal dialysis; Z87.828 Personal history of other (healed) physical injury and trauma; Z79.899 Other long term (current) drug therapy; Z79.891 Long term (current) use of opiate analgesic; E03.9 Hypothyroidism, unspecified; N32.9 Bladder disorder, unspecified; G89.29 Other chronic pain; M54.5 Low back pain; F32.9 Major depressive disorder, single episode, unspecified; K21.9 Gastro-esophageal reflux disease without esophagitis
CPT/HCPCS: 36415; 70030-TC; 71010; 83735; 84100; 84443; 84480; 85025; 85730; 90937; 93005; 93307; A4663

== ENCOUNTER 2017-10-04 13:22 | Inpatient (IN) | payer BC ==
[~2017-10-04] VITALS: Ht 185.4 cm; Wt 56.7 kg
[~2017-10-04 13:22] MED LIST changes: +ATOR20TA PO; -Acetaminophen PO; +CALC0.5C11 PO; -CALC0.5C2 PO; +CARV12.52 PO; -HYDR4TAB4 PO; +LABE200T PO; -LABE300T PO; +NIFE30TA2 PO; -ONDA4TAB8 SL; +VALS160T2 PO
[2017-10-04] MEDS ORDERED: NIFE60TA69 PO (13:47)
[2017-10-04] MEDS ORDERED: ONDA4TAB8 PO (13:47)
[2017-10-04] MEDS ORDERED: HYDR2TAB4 PO (13:47)
--- NOTE | 2017-10-04 14:00 | NUR ---
Per Dr. Gonzalez pt to be admitted to m/s to Dr. Medina.
[2017-10-04 14:16] LABS: BASOPHILS # (AUTO) 0.1 K/uL (0.0-8.0); EOSINOPHILS # (AUTO) 0.3 K/uL (0.0-0.7); EOSINOPHILS % (AUTO) 4.7 % (0.0-7.0); HEMATOCRIT 32.1 % (36.7-47.1); HEMOGLOBIN 10.9 g/dL (12.5-16.3); LYMPHOCYTES # (AUTO) 1.3 K/uL (20.0-40.0); LYMPHOCYTES % (AUTO) 20.4 % (20.5-51.5); MEAN CORPUSCULAR HEMOGLOBIN 30.8 uug (23.8-33.4); MEAN CORPUSCULAR HGB CONC 34 g/dL (32.5-36.3); MEAN CORPUSCULAR VOLUME 91.3 fL (73.0-96.2); MONOCYTES # (AUTO) 0.5 K/uL (2.0-10.0); NEUTROPHILS # (AUTO) 4.4 K/uL (1.8-8.9); NEUTROPHILS % (AUTO) 66.9 % (38.5-71.5); PLATELET COUNT (AUTO) 279 K/uL (152-348); RED BLOOD CELL COUNT(AUTO) 3.52 MIL/uL (4.06-5.63); WHITE BLOOD COUNT (AUTO) 6.5 K/uL (3.6-10.2)
[2017-10-04 14:22] LABS: CREATININE 7.2 mg/dL (0.6-1.3); POTASSIUM 5.4 mmol/L (3.5-5.1)
--- NOTE | 2017-10-04 14:34 | NUR ---
Pt trans to m/s floor, NAD noted.
--- NOTE | 2017-10-04 14:45 | NUR ---
ADMITTED FROM HOME VIA ER A 47 YO MALE WITH ADM DX OF ACUTE RENAL FAILURE, AWAKE ALERT AND ORIENTED X3, NO SIGNS OF ACUTE PAIN OR DISTRESS. ORIENTATION TO ROOM AND EQUIPMENT GIVEN. DR FRYE NOTIFIED OF ADMISSION AWAITING CALL BACK
[2017-10-04 15:25] VITALS: BP 130/92
--- NOTE | 2017-10-04 15:30 | NUR ---
NOTIFIED OF ADMISSION, AWAITING CALL BACK FOR ADMISSION ORDERS
[2017-10-04] MEDS ORDERED: HYDROMORPHONE HCL 2 MG TABLET PO PRN (16:45)
[2017-10-04] MEDS ORDERED: ONDANSETRON ODT 4 MG TAB.RAPDIS SL PRN (16:45)
[2017-10-04] MEDS: NIFEdipine XL 60 MG TABSR PO SCH (17:00)
[2017-10-04] MEDS: CALCITRIOL 0.25 MCG CAPSULE PO SCH (17:00)
[2017-10-04] MEDS ORDERED: SODIUM POLYSTYRENE SULFONATE 15 G/60 ML LIQUID UDC PO ONE (17:45)
[2017-10-04] MEDS: SEVELAMER CARBONATE 800 MG TABLET PO SCH (18:00)
--- NOTE | 2017-10-04 18:10 | NUR ---
PATIENT TOOK OWN CALCITROL, RENVELA, NIFEDIPINE FOR 1699
--- NOTE | 2017-10-04 20:09 | NUR ---
RECEIVED SHIFT REPORT FROM PREVIOUS SHIFT NURSE. PATIENT IS A/OX4, STABLE CONDITION, NO S/S OF DISTRESS. PATIENT VERBALIZED THAT HE NEEDED HIS PERITONEAL DIALYSIS SUPPLIES IN THE CAR, CHARGE NURSE NOTIFIED. NURSE RECEIVED KEYS FROM PATIENT AND WENT TO THE CAR WITH PARKING ENFORCEMENT OFFICER TO OBTAIN SUPPLIES FROM PATIENT'S VEHICLE. 4 2-LITER BAGS OF PERITONEAL DIALYSIS FLUIDS WAS OBTAINED FROM PATIENT'S VEHICLE. PATIENT'S CAR LOCKED, SAFELY BROUGHT PATIENT'S SUPPLIES TO ROOM AND RETURNED PATIENT'S KEYS SAFELY TO PATIENT. BED IN LOCKED/LOW POSITION, SIDE RAILS UP X2, CALL LIGHT WITHIN REACH. SAFETY AND COMFORT WILL BE PROVIDED THROUGHOUT SHIFT.
[2017-10-04 20:20] VITALS: BP 137/90
[2017-10-04] MEDS: METHADONE HCL 10 MG TABLET PO SCH (20:29)
[2017-10-04] MEDS: LABETALOL HCL 200 MG TABLET PO SCH (20:30)
[2017-10-04] MEDS: buPROPion SR 100 MG TABLET.SA PO SCH (20:30)
--- NOTE | 2017-10-04 20:31 | NUR ---
NON-ADMINISTRATION MEDICATIONS: - METHADONE 10 MG - LABETOLOL 200 MG - BUPROPRION 100 MG PATIENT VERBALIZED HE ALREADY TOOK THE LAST DOSES OF THE DAY FOR THOSE MEDICATIONS BEFORE HIS HOME MEDICATIONS WERE SENT TO THE PHARMACY. ALL THREE MEDICATIONS ABOVE WERE NOT ADMINISTERED TO PATIENT.
[2017-10-05 04:56] VITALS: BP 141/92
--- NOTE | 2017-10-05 06:12 | NUR ---
PATIENT HAD DIFFICULT TIME SLEEPING DURING THE NIGHT DUE TO PERITONEAL DIALYSIS DONE BY PATIENT. PATIENT ALSO COMPLAINED OF ABDOMINAL PAIN. PAIN MANAGEMENT PROVIDED. PATIENT IS IN STABLE CONDITION, NO S/S OF DISTRESS. CALL LIGHT WITHIN REACH. PATIENT IS IN SAFE CONDITION/ENVIRONMENT. BED IN LOCKED/LOW POSITION WITH SIDE RAILS UP X2. SAFETY AND COMFORT WAS PROVIDED THROUGHOUT SHIFT. DR. FRYE ORDERED TO HAVE PATIENT NPO AFTER 0500 AND ALSO ORDERED TO HAVE CONSENT FORM SIGNED. CONSENT FORM SIGNED AND PLACED IN CHART, PRE-OP CHECKLIST COMPLETED.
[2017-10-05 07:00] LABS: BASOPHILS # (AUTO) 0.1 K/uL (0.0-8.0); BASOPHILS % (AUTO) 0.9 % (0.0-2.0); BILIRUBIN,TOTAL 0.3 mg/dL (0.2-1.0); CREATININE 7.4 mg/dL (0.6-1.3); EOSINOPHILS # (AUTO) 0.5 K/uL (0.0-0.7); EOSINOPHILS % (AUTO) 6.9 % (0.0-7.0); HEMATOCRIT 27.8 % (36.7-47.1); HEMOGLOBIN 9.5 g/dL (12.5-16.3); LYMPHOCYTES # (AUTO) 2.6 K/uL (20.0-40.0); LYMPHOCYTES % (AUTO) 39.3 % (20.5-51.5); MEAN CORPUSCULAR HEMOGLOBIN 30.9 uug (23.8-33.4); MEAN CORPUSCULAR HGB CONC 34 g/dL (32.5-36.3); MEAN CORPUSCULAR VOLUME 90.1 fL (73.0-96.2); MONOCYTES # (AUTO) 0.7 K/uL (2.0-10.0); MONOCYTES % (AUTO) 9.8 % (0.0-11.0); NEUTROPHILS # (AUTO) 2.9 K/uL (1.8-8.9); NEUTROPHILS % (AUTO) 43.1 % (38.5-71.5); PLATELET COUNT (AUTO) 249 K/uL (152-348); POTASSIUM 4.7 mmol/L (3.5-5.1); RED BLOOD CELL COUNT(AUTO) 3.09 MIL/uL (4.06-5.63); TOTAL PROTEIN, SERUM 5.4 g/dL (6.4-8.2); WHITE BLOOD COUNT (AUTO) 6.6 K/uL (3.6-10.2)
[2017-10-05] MEDS: SEVELAMER CARBONATE 800 MG TABLET PO SCH ×3 (08:00→18:13)
[2017-10-05] MEDS: CALCITRIOL 0.25 MCG CAPSULE PO SCH ×2 (09:14→17:00)
[2017-10-05] MEDS: buPROPion SR 100 MG TABLET.SA PO SCH ×2 (09:14→19:59)
[2017-10-05] MEDS: LABETALOL HCL 200 MG TABLET PO SCH ×2 (09:14→20:00)
[2017-10-05] MEDS: METHADONE HCL 10 MG TABLET PO SCH ×2 (09:15→19:59)
[2017-10-05] MEDS: NIFEdipine XL 60 MG TABSR PO SCH ×2 (09:15→18:13)
[2017-10-05 11:05] VITALS: BP 133/93
[2017-10-05 13:19] LABS: *BILIRUBIN,URIN NEGATIVE (NEGATIVE); *BLOOD, URINE 2+ (NEGATIVE); *CLARITY,URINE CLEAR (CLEAR); *COLOR,URINE YELLOW (YELLOW); *KETONES,URINE NEGATIVE (NEGATIVE); *PROTEIN,URINE 1+ (NEGATIVE); *UROBILINOGEN,URINE 0.2 E.U./dl (NORMAL); LEUKOCYTE ESTERASE ,URINE 1+ (NEGATIVE); NITRITE, URINE NEGATIVE (NEGATIVE); PH,URINE 8.5 (5.0-8.0); UGLUCOSE NEGATIVE (NEGATIVE)
[2017-10-05] MEDS ORDERED: LIDOCAINE HCL 1% 20 ML VIAL ONE (13:20)
[2017-10-05] MEDS ORDERED: BUPIVACAINE/EPI PF 0.25% 30 ML VIAL ONE (13:21)
[2017-10-05 13:38] LABS: BACTERIA,URINE FEW /HPF (NONE SEEN); SQUAMOUS EPITHELIAL CELL,UR FEW /HPF (NONE SEEN)
--- NOTE | 2017-10-05 13:40 | NUR ---
PT IS CALM, COOPERATIVE, STABLE VITALS SIGNS, IV SITE INTACT, BELONGINGS SAFELY STORED IN ROOM. PT HAD ALREADY SIGNED CONSENT AND AWARE OF PROCEDURE.
[2017-10-05] MEDS ORDERED: SEVOFLURANE 250 ML BOTTLE IH ONE (14:12)
[2017-10-05] MEDS ORDERED: NEOSTIGMINE METHYLSULFATE 10 MG/10 ML VIAL IV ONE (14:12)
[2017-10-05] MEDS ORDERED: GLYCOPYRROLATE 0.2 MG/ML VIAL MC ONE (14:12)
[2017-10-05] MEDS ORDERED: IV NORMAL SALINE 1000 ML BAG IV ONE (14:12)
[2017-10-05] MEDS ORDERED: LIDOCAINE HCL 2% 20 ML VIAL MC ONE (14:12)
[2017-10-05] MEDS ORDERED: CEFAZOLIN 1 G VIAL MC ONE (14:12)
[2017-10-05] MEDS ORDERED: PROPOFOL 200 MG/20 ML BOTTLE IV ONE (14:12)
[2017-10-05] MEDS ORDERED: [UNRECOGNIZED DRUG - OTHER] IV ONE (14:51)
[2017-10-05] MEDS ORDERED: MIDAZOLAM HCL 2 MG/2 ML VIAL ONE (14:51)
[2017-10-05] MEDS ORDERED: FENTANYL CITRATE 100 MCG/2 ML AMPUL ONE ×2 (14:51→16:21)
[2017-10-05] MEDS ORDERED: HEPARIN SODIUM,PORCINE 10,000 UNITS/10 ML VIAL ONE (15:52)
--- NOTE | 2017-10-05 17:05 | NUR ---
PT ARRIVED FROM PROCEDURE VITALS STABLE, CALM, COOPERATIVE, AWAKE AOX4. BELONGINGS ARE STILL IN ROOM. REPORT RECEIVED FROM ISAAK.
[2017-10-05 17:14] VITALS: BP 143/88
[2017-10-05 19:00] VITALS: BP 170/96
--- NOTE | 2017-10-05 19:00 | NUR ---
RECEIVED PATIENT APPEARS SLEEPING BUT EASILY AROUSABLE WHEN NAME CALLED. PRESENTED A TOLERABLE PAIN ON SURGICAL SITE AREA AT THIS TIME. DRESSING DRY AND INTACT ON CATHETER SITE AREA. NO BLEEDING NOTED. CONTINUE TO MONITOR.
--- NOTE | 2017-10-05 21:00 | NUR ---
DR FRYE CALLED TO INFORM NURSE TO CALL PT PMD TO OBTAIN PAIN MEDS IV AND CALL HOIM BACK ONCE ORDER OBTAIN. MD ORDER TO PLACE ICE PACK TO AFFECTED AREA NEEDED FOR PAIN.
--- NOTE | 2017-10-05 21:05 | NUR ---
LEFT MESSAGE FOR DR JO LOYA. ANTICIPATING MD TO CALL BACK.
--- NOTE | 2017-10-05 21:08 | NUR ---
DR JO LOYA CALLED WITH NEW ORDER OF DILAUDID 2 MG IV Q 4 HOURS NEEDED FOR PAIN, NOTED AND CARRIED OUT.
--- NOTE | 2017-10-05 21:15 | NUR ---
PATIENT REFUSED ICE PACK STATING THAT HE CAN NOT TOLERATE COLD. CHARGE NURSE AWARE.
[2017-10-05] MEDS: HYDROMORPHONE 4 MG/1 ML DISP.SYRIN ONE ×2 (21:35→22:25)
[2017-10-05] MEDS: HYDROMORPHONE 2 MG/1 ML DISP.SYRIN IV PRN (21:35)
--- NOTE | 2017-10-05 21:41 | NUR ---
MEDICATED WITH DILAUDID 2 MG IVP FOR LEFT ABDOMINAL PAIN IN SCALE OF 9. WILL MONITOR.
[2017-10-06] MEDS ORDERED: HYDROMORPHONE 4 MG/1 ML DISP.SYRIN ONE ×2 (00:52→05:36)
[2017-10-06] MEDS: HYDROMORPHONE 2 MG/1 ML DISP.SYRIN IV PRN ×5 (01:01→17:58)
--- NOTE | 2017-10-06 03:30 | NUR ---
REPORT GIVEN TO ONCOMING NURSE SHANIQUE BLACK
--- NOTE | 2017-10-06 03:45 | NUR ---
Recieved patient from Chavez RN, covering patient for most of the shift. Patient is requesting frequent pain management due to chronic pain. Patient is aware, alert, oriented x4. Noted with mild discomfort and periteneal access for HD; patient does PAD at home, s/p pariteneal port access x 1 day. Tender and sore at the PAD site left lower abd quad. patient is stable and no chief compliant at this point and time.
[2017-10-06 04:00] VITALS: BP 178/109
--- NOTE | 2017-10-06 05:49 | NUR ---
Paged dr. Courtney Figueroa, -noted abd discomfort at PAD access site. Patient pulled plug of catheter noted zach blood draining out catheter. Applied cap to PAD catheter, instructed patient on importance of keeping the site strict sterile, patient verbalized understanding of instruction. No orders noted at this time. Call light is with in reach. Pain medication given as requested per patient. Waiting for call back.
[2017-10-06 06:56] LABS: BILIRUBIN,TOTAL 0.3 mg/dL (0.2-1.0); PHOSPHOROUS 6.2 mg/dL (2.5-4.9); POTASSIUM 5.6 mmol/L (3.5-5.1)
[2017-10-06 07:00] LABS: CREATININE 8.3 mg/dL (0.6-1.3)
--- NOTE | 2017-10-06 07:00 | NUR ---
PATIENT STABLE ON SHIFT NO. NO CALL BACK AT THIS POINT AND TIME FROM DR. FRYE PENDING RETURN CALL, CALL OUT TO BLOOD DONOR RECRUITER SERVICE [phone]. RECIEVED A CALL FROM DIALYSIS NURSE STATING PATIENT WAS CALLING HIM AT HOME, AWARE OF PENDING CALL OUT TO DR. Courtney FRYE. WILL ENDORSE TO DAY SHIFT TO F/U WITH ATTENDING AND SX CSLT DR. FRYE.
[2017-10-06 07:13] LABS: BASOPHILS % (AUTO) 0.4 % (0.0-2.0); EOSINOPHILS # (AUTO) 0.1 K/uL (0.0-0.7); EOSINOPHILS % (AUTO) 1.3 % (0.0-7.0); HEMATOCRIT 29.5 % (40-50); HEMOGLOBIN 9.9 G/DL (14.0-18.0); LYMPHOCYTES # (AUTO) 1.6 K/UL (0.8-4.8); MEAN CORPUSCULAR HEMOGLOBIN 30.5 UUG (27.0-31.0); MEAN CORPUSCULAR HGB CONC 34 g/dL (32.0-37.0); MEAN CORPUSCULAR VOLUME 90.5 FL (82.0-92.0); MONOCYTES # (AUTO) 0.8 K/UL (0.1-1.30); MONOCYTES % (AUTO) 7.4 % (0.0-11.0); NEUTROPHILS # (AUTO) 8.3 K/UL (1.8-8.9); NEUTROPHILS % (AUTO) 75.9 % (38.5-71.5); PLATELET COUNT (AUTO) 297 K/UL (150-450); RED BLOOD CELL COUNT(AUTO) 3.26 MIL/UL (4.7-6.1); WHITE BLOOD COUNT (AUTO) 10.8 K/UL (4.0-11.2)
--- NOTE | 2017-10-06 07:30 | NUR ---
awake c/o of abdominal pain, states been taking plug of peritoneal catheter and 2 cups of blood on table approximately 375ml of red blood, Dr Jah Figueroa called and was instructed to connect to a bag and let it drain by gravity, vs taken BP 169/112 HR 95 placed on telemetry- SR 90's, slight old blood noted on dsg at the site of catheter, kept npo for now for CT abdomen without contrast, awake alert and oriented, will monitor closely
[2017-10-06] MEDS: SEVELAMER CARBONATE 800 MG TABLET PO SCH ×3 (08:00→17:12)
[2017-10-06] MEDS: LABETALOL HCL 200 MG TABLET PO SCH ×2 (08:30→23:24)
[2017-10-06] MEDS: NIFEdipine XL 60 MG TABSR PO SCH ×2 (08:31→17:07)
[2017-10-06] MEDS: buPROPion SR 100 MG TABLET.SA PO SCH ×2 (08:31→23:23)
[2017-10-06] MEDS: CALCITRIOL 0.25 MCG CAPSULE PO SCH ×2 (08:31→17:00)
[2017-10-06] MEDS: METHADONE HCL 10 MG TABLET PO SCH ×2 (08:32→23:22)
--- NOTE | 2017-10-06 09:00 | NUR ---
Dr Jah Figueroa called and relayed H/H results VS and blood output of 825 ml- orders given, am meds given with sip of water- will continue to monitor closely, urostomy cath with yellow urine in the bag about 200ml, call light within reach, BP 172/108
[2017-10-06] MEDS ORDERED: DESMOPRESSIN INJ 30 MCG in IV NORMAL SALINE 50 ML IV ONE ×2 (09:15→10:00)
[2017-10-06] MEDS: VALSARTAN 160 MG TABLET PO SCH ×2 (09:47→23:25)
[2017-10-06 09:56] LABS: HEMATOCRIT 27.9 % (36.7-47.1); HEMOGLOBIN 9.5 g/dL (12.5-16.3)
[2017-10-06] MEDS ORDERED: NORMAL SALINE IV ONE ×4 (10:15)
[2017-10-06] MEDS ORDERED: DESMOPRESSIN IV ONE ×4 (10:15)
--- NOTE | 2017-10-06 10:30 | NUR ---
called Dr Jah Figueroa and relayed H/H and PTT,PT/INR results- to recheck H/H in 4 hrs, BP 175/108- pain med given as ordered prn
[2017-10-06 11:51] VITALS: BP 177/108
--- NOTE | 2017-10-06 12:25 | NUR ---
dozing at this time, lesser bleeding noted, BP still elevated- placed a call to Dr Rivera- to return call
--- NOTE | 2017-10-06 12:37 | NUR ---
keep patient NPO until next blood drawn H/H @1340 due to bleeding on stoma.
--- NOTE | 2017-10-06 13:40 | NUR ---
Dr Myles here and saw pt- informed of BP still elevated and pt without BM- with orders and to keep him NPO except meds, ok ice chips until seen by Dr Figueroa
[2017-10-06] MEDS ORDERED: SENNOSIDES 1 TABLET PO ONE (14:00)
[2017-10-06] MEDS ORDERED: CEFAZOLIN 1 G VIAL MC ONE (14:51)
[2017-10-06] MEDS ORDERED: GLYCOPYRROLATE 0.2 MG/ML VIAL MC ONE (14:51)
[2017-10-06] MEDS ORDERED: ONDANSETRON 4 MG/2 ML VIAL IV ONE (14:51)
[2017-10-06] MEDS ORDERED: DEXAMETHASONE SOD PHOSPHATE 4 MG INJ IV ONE (14:51)
[2017-10-06] MEDS ORDERED: IV NORMAL SALINE 1000 ML BAG IV ONE (14:51)
[2017-10-06] MEDS ORDERED: NEOSTIGMINE METHYLSULFATE 10 MG/10 ML VIAL IV ONE (14:51)
[2017-10-06] MEDS ORDERED: VECURONIUM BROMIDE 10 MG VIAL IV ONE (14:51)
[2017-10-06] MEDS ORDERED: DESFLURANE ANESTHESIA GAS 240 ML BOTTLE IH ONE (14:51)
[2017-10-06] MEDS ORDERED: ETOMIDATE 20 MG/10 ML VIAL MC ONE (14:54)
--- NOTE | 2017-10-06 15:50 | NUR ---
Dr mobley called and informed of peritoneal cath not draining- order given to flush with NS
--- NOTE | 2017-10-06 16:00 | NUR ---
Amber Gill DRYING OVEN TENDER here and saw pt- flushed peeritoneal cath wisth 30ml of NS without any problem, draining small amount of light red blood to bag
[2017-10-06 16:05] LABS: HEMATOCRIT 26.3 % (36.7-47.1)
[2017-10-06 16:17] VITALS: BP 168/97
--- NOTE | 2017-10-06 17:10 | NUR ---
BP 168/97- Procardia XL 60 mg given with little sip of H20
--- NOTE | 2017-10-06 17:12 | NUR ---
Kaila Worrell [employer] spoke to pt for procedure to be done tonight- Laparoscopic abdominal exploration possible open, pt is thinking about it
[2017-10-06] MEDS ORDERED: hydrALAZINE HCL 20 MG/1 ML VIAL IV PRN (18:00)
--- NOTE | 2017-10-06 18:09 | NUR ---
no distress noted, medicated for abdominal paim, no nausea. still moderate amount of light red drainage from the peritoneal catheter, tele SR 90's, call ligth within reach
[2017-10-06 18:20] VITALS: BP 153/94
[2017-10-06 18:47] LABS: POTASSIUM 6.2 mmol/L (3.5-5.1)
[2017-10-06 18:48] LABS: CREATININE 8.7 mg/dL (0.6-1.3)
--- NOTE | 2017-10-06 19:15 | NUR ---
TO SURGERY VIA BED.
[2017-10-06] MEDS ORDERED: LIDOCAINE HCL 1% 20 ML VIAL ONE (20:03)
[2017-10-06] MEDS ORDERED: BUPIVACAINE 0.25% 30 ML VIAL ONE (20:04)
[2017-10-06] MEDS ORDERED: LIDOCAINE 1%-EPI 1:100,000 20 ML VIAL ONE (20:05)
[2017-10-06] MEDS ORDERED: HEMOSTATIC MATRIX 5 ML SYR MC ONE ×2 (20:40→21:00)
[2017-10-06] MEDS ORDERED: HYDROMORPHONE 1 MG/1 ML DISP.SYRIN ONE (21:33)
[2017-10-06] MEDS ORDERED: FENTANYL CITRATE 100 MCG/2 ML AMPUL ONE (21:51)
--- NOTE | 2017-10-06 22:20 | NUR ---
BACK FROM SURGERY. SLEEPING BUT EASILY AROUSEABLE. LEFT ABDOMEN DRESSING DRY AND INTACT. PERITONEAL CATHETER INTACT AND PATENT. UROSTOMY INTACT AND PATENT WITH SMALL AMOUNT OF OUTPUT. VS TAKEN AND RECORDED. WILL CONTINUE TO MONITOR
[2017-10-06 22:23] VITALS: BP 168/96
[2017-10-06 23:04] VITALS: BP 168/93
[2017-10-07] MEDS: HYDROMORPHONE 2 MG/1 ML DISP.SYRIN IV PRN ×4 (01:35→17:32)
[2017-10-07 04:00] VITALS: BP 144/83
--- NOTE | 2017-10-07 05:31 | NUR ---
SLEPT WELL. BP CONTROLLED MEDICATED ONCE FOR PAIN. NO FURTHER COMPLAINT PRESENTED. ALL NEEDS ATTENDED AND MET. CONTINUE CURRENT PLAN OF CARE.
[2017-10-07 07:07] LABS: BASOPHILS % (AUTO) 0.2 % (0.0-2.0); EOSINOPHILS % (AUTO) 0.2 % (0.0-7.0); HEMOGLOBIN 8.1 g/dL (12.5-16.3); LYMPHOCYTES # (AUTO) 1.4 K/uL (20.0-40.0); LYMPHOCYTES % (AUTO) 18.1 % (20.5-51.5); MEAN CORPUSCULAR HEMOGLOBIN 31.2 uug (23.8-33.4); MEAN CORPUSCULAR HGB CONC 34 g/dL (32.5-36.3); MEAN CORPUSCULAR VOLUME 92.1 fL (73.0-96.2); MONOCYTES # (AUTO) 0.5 K/uL (2.0-10.0); MONOCYTES % (AUTO) 6.2 % (0.0-11.0); NEUTROPHILS # (AUTO) 5.7 K/uL (1.8-8.9); NEUTROPHILS % (AUTO) 75.3 % (38.5-71.5); PLATELET COUNT (AUTO) 217 K/uL (152-348)
[2017-10-07 07:08] LABS: BILIRUBIN,TOTAL 0.3 mg/dL (0.2-1.0); MAGNESIUM 2.2 mg/dL (1.8-2.4); PHOSPHOROUS 6.8 mg/dL (2.5-4.9); TOTAL PROTEIN, SERUM 5.9 g/dL (6.4-8.2)
[2017-10-07 07:17] LABS: WHITE BLOOD COUNT (AUTO) 7.5 K/uL (3.6-10.2)
[2017-10-07 07:22] LABS: POTASSIUM 6.4 mmol/L (3.5-5.1)
[2017-10-07 07:24] LABS: CREATININE 8.9 mg/dL (0.6-1.3)
--- NOTE | 2017-10-07 07:40 | NUR ---
CRITICAL VALUES REPORTED BY YVES Bonilla 6.4. DR. GONZALEZ NOTIFIED. WAITING FOR ORDERS
[2017-10-07] MEDS: VALSARTAN 160 MG TABLET PO SCH ×2 (08:17→20:42)
[2017-10-07] MEDS: buPROPion SR 100 MG TABLET.SA PO SCH ×2 (08:26→20:42)
[2017-10-07] MEDS: METHADONE HCL 10 MG TABLET PO SCH ×2 (08:27→21:16)
[2017-10-07] MEDS: LABETALOL HCL 200 MG TABLET PO SCH ×2 (08:27→20:41)
[2017-10-07] MEDS: SEVELAMER CARBONATE 800 MG TABLET PO SCH ×3 (08:28→17:25)
[2017-10-07] MEDS: NIFEdipine XL 60 MG TABSR PO SCH ×2 (08:28→17:25)
[2017-10-07] MEDS: CALCITRIOL 0.25 MCG CAPSULE PO SCH ×2 (08:28→17:24)
[2017-10-07] MEDS: SENNOSIDES 1 TABLET PO SCH (08:29)
[2017-10-07] MEDS ORDERED: SODIUM POLYSTYRENE SULFONATE 15 G/60 ML LIQUID UDC PO ONE (08:30)
[2017-10-07] MEDS ORDERED: BUMETANIDE 1 MG/4 ML VIAL IV ONE (08:30)
[2017-10-07] MEDS ORDERED: FUROSEMIDE 40 MG/4 ML VIAL IV ONE (09:00)
[2017-10-07] MEDS: CITRIC ACID/SODIUM CITRATE 30 ML SOLUTION PO SCH ×4 (09:25→20:41)
[2017-10-07 10:59] VITALS: BP 155/88
--- NOTE | 2017-10-07 12:23 | NUR ---
Patient been in bed resting. No s/s of distress noted. C/O of abdominal pain, pain medication administered as ordered. 3 incision sites are clean and dry, no signs of infection. V/S wnl. PT asked to call him family member Don for update, it was done. Safety and comfort provided. Will continue monitoring.
[2017-10-07 12:48] LABS: POTASSIUM 5.3 mmol/L (3.5-5.1)
[2017-10-07 12:54] LABS: CREATININE 9.1 mg/dL (0.6-1.3)
[2017-10-07 15:07] VITALS: BP 178/100
--- NOTE | 2017-10-07 16:39 | NUR ---
Patient been complaining of abdominal cramping, constipation. BP 178/100 HR 81 Administered Hydralazine IV, traveling repair accountant was on for monitoring. Intervention was effective BP 132/[address] Rivera notified, waiting for orders. Will continue monitoring
--- NOTE | 2017-10-07 17:59 | NUR ---
Patient is in bed eating. No s/s of distress noted. Continue c/o of abdominal pain, medicated as ordered. Urostomy draining well, cloudy yellow urine. BP been controlled. Patient have been cooperative with the interventions. Safety and comfort provided by staff. Will continue monitoring.
[2017-10-07] MEDS: MIRALAX 17 GM POWD.PACK PO PRN ×2 (18:36→18:55)
--- NOTE | 2017-10-07 19:30 | NUR ---
Received patient laying comfortable in bed. No acute distress noted. A&O x 4.Tele Sinus tach at 100. Peritoneal Dialysis port C/D/I. Urostomy draining well. Skin intact. Safety initiated. Call light within reach. Will continue to monitor.
[2017-10-07 20:25] VITALS: BP 128/88
[2017-10-08 00:10] VITALS: BP 132/86
[2017-10-08] MEDS: HYDROMORPHONE 2 MG/1 ML DISP.SYRIN IV PRN ×2 (04:44→16:13)
--- NOTE | 2017-10-08 05:06 | NUR ---
No changes t/o shift. Patient slept t/o shift. No Acute distress noted. Tele SR. Urostomy draining well. Left abdominal dressing C/D/I. C/O pain in sx site on the left abdomen. Gave medication, stated relief. Patient took all meds as ordered. Asked when does he plan to do a Peritoneal Dialysis on himself. He asked the levels of his BUN and Creatinine. Elevated so patient states that sometime today, he will do a Peritoneal Dialysis. Vital signs stable. Comfort and safety measures maintained t/o shift. All meds given as ordered. All needs met.
[2017-10-08 06:46] VITALS: BP 121/76
[2017-10-08 07:19] LABS: BILIRUBIN,TOTAL 0.3 mg/dL (0.2-1.0); MAGNESIUM 2.2 mg/dL (1.8-2.4); PHOSPHOROUS 6.6 mg/dL (2.5-4.9); POTASSIUM 4.5 mmol/L (3.5-5.1); TOTAL PROTEIN, SERUM 5.9 g/dL (6.4-8.2)
[2017-10-08 07:20] LABS: CREATININE 9.4 mg/dL (0.6-1.3)
[2017-10-08 07:31] LABS: BASOPHILS % (AUTO) 0.4 % (0.0-2.0); EOSINOPHILS # (AUTO) 0.2 K/uL (0.0-0.7); EOSINOPHILS % (AUTO) 3.2 % (0.0-7.0); LYMPHOCYTES # (AUTO) 1.8 K/UL (0.8-4.8); LYMPHOCYTES % (AUTO) 28.3 % (20.5-51.5); MEAN CORPUSCULAR HEMOGLOBIN 30.3 UUG (27.0-31.0); MEAN CORPUSCULAR HGB CONC 34 g/dL (32.0-37.0); MEAN CORPUSCULAR VOLUME 90.4 FL (82.0-92.0); MONOCYTES # (AUTO) 0.6 K/UL (0.1-1.30); NEUTROPHILS # (AUTO) 3.8 K/UL (1.8-8.9); NEUTROPHILS % (AUTO) 59.1 % (38.5-71.5); PLATELET COUNT (AUTO) 265 K/UL (150-450); RED BLOOD CELL COUNT(AUTO) 2.58 MIL/UL (4.7-6.1); WHITE BLOOD COUNT (AUTO) 6.4 K/UL (4.0-11.2)
[2017-10-08 07:39] LABS: HEMATOCRIT 23.3 % (40-50); HEMOGLOBIN 7.8 G/DL (14.0-18.0)
--- NOTE | 2017-10-08 07:53 | NUR ---
Critical value notified by lab Hgb 7.8, Hcy 23.3. Called Nephrology group Dr. Sylvester to notified. Waiting for order. Will continue following up and monitoring patient.
[2017-10-08] MEDS: SEVELAMER CARBONATE 800 MG TABLET PO SCH ×3 (08:12→17:55)
[2017-10-08] MEDS: METHADONE HCL 10 MG TABLET PO SCH ×2 (08:14→20:52)
[2017-10-08] MEDS: CALCITRIOL 0.25 MCG CAPSULE PO SCH ×2 (08:15→16:11)
[2017-10-08] MEDS: SENNOSIDES 1 TABLET PO SCH (08:15)
[2017-10-08] MEDS: buPROPion SR 100 MG TABLET.SA PO SCH ×2 (08:16→20:51)
[2017-10-08] MEDS: CITRIC ACID/SODIUM CITRATE 30 ML SOLUTION PO SCH ×4 (08:17→20:52)
[2017-10-08 11:28] VITALS: BP 111/72
[2017-10-08] MEDS: LABETALOL HCL 200 MG TABLET PO SCH ×2 (11:47→20:52)
[2017-10-08] MEDS: NIFEdipine XL 60 MG TABSR PO SCH ×2 (11:47→16:12)
[2017-10-08] MEDS: VALSARTAN 160 MG TABLET PO SCH ×2 (11:49→21:00)
--- NOTE | 2017-10-08 12:47 | NUR ---
PATIENT SEES FATI
--- NOTE | 2017-10-08 12:47 | NUR ---
PATIENT SEEMS FATIGUE, V/S WNL. MD MANCILLA TO GIVE MEDICATION SBP >120, MEDICATIONS WERE GIVEN. WILL CONTINUE MONITORING.
--- NOTE | 2017-10-08 13:55 | NUR ---
Patient asked to update his father Don about his status. Patient's father aware of the condition.
[2017-10-08 15:30] VITALS: BP 132/54
--- NOTE | 2017-10-08 18:55 | NUR ---
Patient in bed resting now, No s/s of distress noted. C/O of pain, medicated as ordered. Safety and comfort provided. Will continue monitoring
--- NOTE | 2017-10-08 19:30 | NUR ---
Received patient laying comfortably in bed. No acute distress noted. A&O x4. No c/o pain or SOB. Tele Sinus Tach. IV is on the left AC #20. Patient would like to conduct a peritoneal dialysis on himself but missing an adaptor. Nursing sup. and charge nurse made aware. Surgical dressing on the left abdomen C/D/I. Urostomy draining well. Safety initiated. Call light within reach. Will continue to monitor.
[2017-10-08 20:36] VITALS: BP 110/64
--- NOTE | 2017-10-08 22:00 | NUR ---
D/W Nursing Sup regarding missing piece of his peritoneal dialysis port, she does not think we have it here in the hospital. We've looked in our pxis supply system with no success of finding one. Nursing Sup will continue to look. Patient aware, she said he can have his nephew come in tomorrow to bring the missing piece. Will continue to monitor.
[2017-10-09] MEDS: HYDROMORPHONE 2 MG/1 ML DISP.SYRIN IV PRN ×2 (00:09→08:22)
[2017-10-09 00:54] VITALS: BP 120/77
--- NOTE | 2017-10-09 01:00 | NUR ---
Patients nephelliott bought supplies from home. Patient will start PD today. Will continue to monitor.
--- NOTE | 2017-10-09 04:04 | NUR ---
PD cath draining well. Patient no c/o pain.
[2017-10-09 04:25] VITALS: BP 126/77
--- NOTE | 2017-10-09 05:15 | NUR ---
Patient slept intermittently t/o shift. No acute distress noted. No change in conditions t/o shift. Patient was able to perform PD, nephew came to drop off supplies needed. Tolerated PD well, PD cath draining well. No c/o pain or bleeding. Tele sinus tach. Incision dressing on the left abdomen C/D/I. Urostomy draining well. Safety and comfort measures maintained t/o shift. All meds given as ordered. All needs met.
[2017-10-09] MEDS: SEVELAMER CARBONATE 800 MG TABLET PO SCH ×3 (08:17→17:24)
[2017-10-09] MEDS: CITRIC ACID/SODIUM CITRATE 30 ML SOLUTION PO SCH ×3 (09:53→17:00)
[2017-10-09] MEDS: VALSARTAN 160 MG TABLET PO SCH (09:53)
[2017-10-09] MEDS: CALCITRIOL 0.25 MCG CAPSULE PO SCH ×2 (09:54→17:24)
[2017-10-09] MEDS: METHADONE HCL 10 MG TABLET PO SCH (09:54)
[2017-10-09] MEDS: SENNOSIDES 1 TABLET PO SCH (09:54)
[2017-10-09] MEDS: NIFEdipine XL 60 MG TABSR PO SCH ×2 (09:54→17:24)
[2017-10-09] MEDS: buPROPion SR 100 MG TABLET.SA PO SCH (09:55)
[2017-10-09] MEDS: LABETALOL HCL 200 MG TABLET PO SCH (09:55)
[2017-10-09 11:20] VITALS: BP 147/87
[2017-10-09] MEDS ORDERED: POLY17PO4 PO (12:18)
[2017-10-09 15:30] VITALS: BP 140/89
[2017-10-09 17:24] VITALS: BP 140/89
--- NOTE | 2017-10-09 18:15 | NUR ---
HEP. REYNOSO D/Nader'D. PT. REFUSED RETAKING OF PHOTOS OF HIS UROSTOMY--STATES THERE IS NOTHING WRONG WITH MY UROSTOMY. DENIES ANY IRRITATION OR DISCOMFORT. NO INFLAMMATION NOTED TO STOMA OR SURROUNDING AREA. HOME INSTRUCTIONS REVIEWED WITH PT. DISCHARGED AT 1820 VIA W/C WITH ALL HIS HOME SUPPLIES.
== END 2017-10-09 18:10 | disposition home or self-care (01) | DRG 907 ==
LOC: ER 13:22 → TELE 14:49 → MED 15:06 → TELE 10-06 08:22 → MED 10-07 12:21 → TELE 10-07 15:33
PROVIDERS: ADMIT Internal Medicine Nephrology; ATTEND Internal Medicine
PROC: 0DNW4ZZ Release Peritoneum, Percutaneous Endoscopic Approach (ICD-10-PCS; principal; 2017-10-05 14:32)
PROC: 0W3G4ZZ Control Bleeding in Peritoneal Cavity, Percutaneous Endoscopic Approach (ICD-10-PCS; 2017-10-06)
PROC: 3E1M39Z Irrigation of Peritoneal Cavity using Dialysate, Percutaneous Approach (ICD-10-PCS; 2017-10-09)
DX: T85.611A Breakdown (mechanical) of intraperitoneal dialysis catheter, initial encounter (principal); N18.6 End stage renal disease; I42.8 Other cardiomyopathies; D68.32 Hemorrhagic disorder due to extrinsic circulating anticoagulants; E44.0 Moderate protein-calorie malnutrition; I12.0 Hypertensive chronic kidney disease with stage 5 chronic kidney disease or end stage renal disease; E87.5 Hyperkalemia; N13.30 Unspecified hydronephrosis; Q60.0 Renal agenesis, unilateral; Z68.1 Body mass index [BMI] 19.9 or less, adult; K66.0 Peritoneal adhesions (postprocedural) (postinfection); K21.0 Gastro-esophageal reflux disease with esophagitis; Z99.2 Dependence on renal dialysis; Z93.6 Other artificial openings of urinary tract status; E03.9 Hypothyroidism, unspecified; Z79.899 Other long term (current) drug therapy; G89.4 Chronic pain syndrome; K29.70 Gastritis, unspecified, without bleeding; D64.9 Anemia, unspecified; I16.0 Hypertensive urgency; Z87.19 Personal history of other diseases of the digestive system; Z82.5 Family history of asthma and other chronic lower respiratory diseases; K82.8 Other specified diseases of gallbladder; K59.00 Constipation, unspecified; T45.515A Adverse effect of anticoagulants, initial encounter; Y92.230 Patient room in hospital as the place of occurrence of the external cause
CPT/HCPCS: 36415; 70030-TC; 83735; 84100; 85018; 85025; 85730; 90937; 93005; A4217; A4663; J0360; J0690; J1100; J1170; J1644; J1940; J2250; J2405; J2597; J2710; J3010; J3490; J7030; J7040

== ENCOUNTER 2018-02-14 17:22 | Inpatient (IN) | payer BC, MEDICARE ==
[~2018-02-14] VITALS: Ht 185.4 cm; Wt 59.9 kg
[~2018-02-14 17:22] MED LIST changes: -ATOR20TA PO; -CARV12.52 PO; +HYDR2TAB4 PO; -METR500T PO; -NEFA100T PO; -NIFE30TA2 PO; +NIFE60TA69 PO; +ONDA4TAB8 PO; +POLY17PO4 PO
[2018-02-14 18:20] LABS: BASOPHILS % (AUTO) 0.6 % (0.0-2.0); EOSINOPHILS % (AUTO) 0.7 % (0.0-7.0); HEMATOCRIT 32.1 % (36.7-47.1); LYMPHOCYTES # (AUTO) 0.6 K/uL (20.0-40.0); LYMPHOCYTES % (AUTO) 14.6 % (20.5-51.5); MEAN CORPUSCULAR HEMOGLOBIN 29.6 uug (23.8-33.4); MEAN CORPUSCULAR HGB CONC 34 g/dL (32.5-36.3); MEAN CORPUSCULAR VOLUME 86.4 fL (73.0-96.2); MONOCYTES # (AUTO) 0.6 K/uL (2.0-10.0); MONOCYTES % (AUTO) 13.5 % (0.0-11.0); NEUTROPHILS # (AUTO) 3.1 K/uL (1.8-8.9); NEUTROPHILS % (AUTO) 70.6 % (38.5-71.5); PLATELET COUNT (AUTO) 194 K/uL (152-348); RED BLOOD CELL COUNT(AUTO) 3.72 MIL/uL (4.06-5.63); WHITE BLOOD COUNT (AUTO) 4.4 K/uL (3.6-10.2)
[2018-02-14 18:29] LABS: CREATININE 5.3 mg/dL (0.6-1.3)
[2018-02-14 18:31] LABS: *BILIRUBIN,URIN NEGATIVE (NEGATIVE); *BLOOD, URINE 2+ (NEGATIVE); *CLARITY,URINE CLOUDY (CLEAR); *COLOR,URINE YELLOW (YELLOW); *KETONES,URINE NEGATIVE (NEGATIVE); *UROBILINOGEN,URINE 0.2 E.U./dl (NORMAL); LEUKOCYTE ESTERASE ,URINE 1+ (NEGATIVE); NITRITE, URINE NEGATIVE (NEGATIVE); UGLUCOSE NEGATIVE (NEGATIVE)
[2018-02-14 18:44] LABS: BILIRUBIN,TOTAL 0.5 mg/dL (0.2-1.0); TOTAL PROTEIN, SERUM 6.6 g/dL (6.4-8.2)
[2018-02-14 18:53] LABS: *PROTEIN,URINE 3+ (NEGATIVE)
[2018-02-14 18:54] LABS: BACTERIA,URINE MANY /HPF (NONE SEEN); MUCUS,URINE MANY /LPF (0-FEW); SQUAMOUS EPITHELIAL CELL,UR FEW /HPF (NONE SEEN)
[2018-02-14] MEDS ORDERED: NORMAL SALINE FLUSH 10 ML DISP.SYRIN ONE (21:20)
[2018-02-14] MEDS ORDERED: SWABABLE VALVE TRANSFER SET EA MC ONE (21:20)
[2018-02-14] MEDS ORDERED: IV NORMAL SALINE 100 ML ONE (21:20)
[2018-02-14] MEDS ORDERED: IOHEXOL 300MG/ML 100 ML INFUS..BTL ONE (21:20)
[2018-02-14] MEDS ORDERED: AMLO10TA2 PO (21:47)
[2018-02-14] MEDS ORDERED: HYDR-3326 PO (21:47)
[2018-02-14] MEDS ORDERED: DOCU100C36 PO (21:47)
[2018-02-14 22:27] VITALS: BP 121/69
[2018-02-14] MEDS: GUAIFENESIN/CODEINE 5 ML LIQUID UDC PO PRN (23:10)
[2018-02-14] MEDS: HYDROCODONE/APAP 5-325MG TABLET PO PRN (23:10)
[2018-02-15] MEDS: HYDROCODONE/APAP 5-325MG TABLET PO PRN ×4 (04:46→21:22)
[2018-02-15 05:18] VITALS: BP 130/89
[2018-02-15 07:04] LABS: BASOPHILS % (AUTO) 0.8 % (0.0-2.0); EOSINOPHILS % (AUTO) 0.8 % (0.0-7.0); HEMATOCRIT 32.2 % (36.7-47.1); HEMOGLOBIN 11.2 g/dL (12.5-16.3); LYMPHOCYTES # (AUTO) 0.8 K/uL (20.0-40.0); LYMPHOCYTES % (AUTO) 21.2 % (20.5-51.5); MEAN CORPUSCULAR HEMOGLOBIN 29.9 uug (23.8-33.4); MEAN CORPUSCULAR HGB CONC 35 g/dL (32.5-36.3); MEAN CORPUSCULAR VOLUME 86.3 fL (73.0-96.2); MONOCYTES # (AUTO) 0.6 K/uL (2.0-10.0); MONOCYTES % (AUTO) 15.4 % (0.0-11.0); NEUTROPHILS # (AUTO) 2.3 K/uL (1.8-8.9); NEUTROPHILS % (AUTO) 61.8 % (38.5-71.5); PLATELET COUNT (AUTO) 207 K/uL (152-348); RED BLOOD CELL COUNT(AUTO) 3.74 MIL/uL (4.06-5.63); WHITE BLOOD COUNT (AUTO) 3.7 K/uL (3.6-10.2)
[2018-02-15 07:10] LABS: BILIRUBIN,TOTAL 0.5 mg/dL (0.2-1.0); CREATININE 6.2 mg/dL (0.6-1.3); POTASSIUM 4.4 mmol/L (3.5-5.1); TOTAL PROTEIN, SERUM 6.2 g/dL (6.4-8.2)
[2018-02-15] MEDS: METHADONE HCL 10 MG TABLET PO SCH ×2 (07:59→16:09)
[2018-02-15 08:11] LABS: BASOPHILS % (MANUAL) 1 % (0-2); EOSINOPHILS % (MANUAL) 2 % (0-8); LYMPHOCYTES % (MANUAL) 21 % (20-40); MONOCYTES % (MANUAL) 12 % (2-10); NEUTROPHILS % (MANUAL) 64 % (42-75)
[2018-02-15] MEDS ORDERED: ONDANSETRON ODT 4 MG TAB.RAPDIS SL PRN (08:15)
[2018-02-15] MEDS ORDERED: HYDROCODONE/APAP 5-325MG TABLET PO PRN (08:15)
[2018-02-15] MEDS: SEVELAMER CARBONATE 800 MG TABLET PO SCH ×3 (08:25→17:23)
[2018-02-15] MEDS: buPROPion SR 100 MG TABLET.SA PO SCH ×2 (08:25→20:21)
[2018-02-15] MEDS: DOCUSATE SODIUM 100 MG CAPSULE PO SCH (08:25)
[2018-02-15] MEDS ORDERED: AMLODIPINE 10 MG TABLET PO SCH (09:00)
[2018-02-15] MEDS: NIFEdipine XL 60 MG TABSR PO SCH ×2 (09:35→20:21)
[2018-02-15 11:08] VITALS: BP 154/77
[2018-02-15 15:05] VITALS: BP 157/84
[2018-02-15 20:00] VITALS: BP 163/91
[2018-02-15] MEDS: GUAIFENESIN/CODEINE 5 ML LIQUID UDC PO PRN (20:26)
[2018-02-16] VITALS: BP 137/83
[2018-02-16] MEDS ORDERED: HYDROCODONE/APAP 5-325MG TABLET PO ONE (00:30)
[2018-02-16] MEDS: GUAIFENESIN/CODEINE 5 ML LIQUID UDC PO PRN (03:04)
[2018-02-16] MEDS: HYDROCODONE/APAP 5-325MG TABLET PO PRN (03:30)
[2018-02-16] MEDS ORDERED: MORPHINE SULFATE 2 MG/1 ML DISP.SYRIN IV PRN (04:45)
[2018-02-16] MEDS ORDERED: MORPHINE SULFATE 4 MG/1 ML DISP.SYRIN IV PRN (04:45)
[2018-02-16 04:51] VITALS: BP 142/97
[2018-02-16] MEDS: DOCUSATE SODIUM 100 MG CAPSULE PO SCH (08:03)
[2018-02-16] MEDS: NIFEdipine XL 60 MG TABSR PO SCH ×2 (08:03→20:48)
[2018-02-16] MEDS: METHADONE HCL 10 MG TABLET PO SCH ×3 (08:03→16:38)
[2018-02-16] MEDS: SEVELAMER CARBONATE 800 MG TABLET PO SCH ×3 (08:03→17:10)
[2018-02-16] MEDS: buPROPion SR 100 MG TABLET.SA PO SCH ×2 (08:04→20:47)
[2018-02-16 11:02] VITALS: BP 165/91
[2018-02-16 15:08] VITALS: BP 160/82
[2018-02-16 20:37] VITALS: BP 145/91
[2018-02-17 05:24] VITALS: BP 170/91
[2018-02-17 06:13] LABS: BASOPHILS % (AUTO) 0.7 % (0.0-2.0); EOSINOPHILS # (AUTO) 0.1 K/uL (0.0-0.7); EOSINOPHILS % (AUTO) 2.1 % (0.0-7.0); HEMATOCRIT 37.6 % (36.7-47.1); LYMPHOCYTES # (AUTO) 1.1 K/uL (20.0-40.0); MEAN CORPUSCULAR HEMOGLOBIN 29.8 uug (23.8-33.4); MEAN CORPUSCULAR HGB CONC 35 g/dL (32.5-36.3); MEAN CORPUSCULAR VOLUME 86.1 fL (73.0-96.2); MONOCYTES # (AUTO) 0.7 K/uL (2.0-10.0); MONOCYTES % (AUTO) 11.6 % (0.0-11.0); NEUTROPHILS # (AUTO) 3.8 K/uL (1.8-8.9); NEUTROPHILS % (AUTO) 66.6 % (38.5-71.5); PLATELET COUNT (AUTO) 259 K/uL (152-348); RED BLOOD CELL COUNT(AUTO) 4.37 MIL/uL (4.06-5.63); WHITE BLOOD COUNT (AUTO) 5.7 K/uL (3.6-10.2)
[2018-02-17 06:38] LABS: BILIRUBIN,TOTAL 0.5 mg/dL (0.2-1.0); CREATININE 6.6 mg/dL (0.6-1.3); MAGNESIUM 2.5 mg/dL (1.8-2.4); PHOSPHOROUS 4.3 mg/dL (2.5-4.9); POTASSIUM 4.1 mmol/L (3.5-5.1); TOTAL PROTEIN, SERUM 7.1 g/dL (6.4-8.2)
[2018-02-17 08:20] VITALS: BP 140/82
[2018-02-17] MEDS: DOCUSATE SODIUM 100 MG CAPSULE PO SCH (08:26)
[2018-02-17] MEDS: METHADONE HCL 10 MG TABLET PO SCH (08:27)
[2018-02-17] MEDS: buPROPion SR 100 MG TABLET.SA PO SCH (08:27)
[2018-02-17] MEDS: SEVELAMER CARBONATE 800 MG TABLET PO SCH ×2 (08:27→12:35)
[2018-02-17] MEDS: NIFEdipine XL 60 MG TABSR PO SCH (08:27)
[2018-02-17 11:36] VITALS: BP 159/90
== END 2018-02-17 14:00 | disposition home or self-care (01) | DRG 896 ==
LOC: ER 17:31 → MED 21:25
PROVIDERS: ADMIT Internal Medicine Nephrology; ATTEND Internal Medicine
PROC: 5A1D70Z Performance of Urinary Filtration, Intermittent, Less than 6 Hours Per Day (ICD-10-PCS; principal; 2018-02-14)
DX: F11.23 Opioid dependence with withdrawal (principal); G92 Toxic encephalopathy; I82.210 Acute embolism and thrombosis of superior vena cava; N18.6 End stage renal disease; I12.0 Hypertensive chronic kidney disease with stage 5 chronic kidney disease or end stage renal disease; F39 Unspecified mood [affective] disorder; G89.29 Other chronic pain; M54.5 Low back pain; Z99.2 Dependence on renal dialysis; K21.9 Gastro-esophageal reflux disease without esophagitis; N32.89 Other specified disorders of bladder; R22.0 Localized swelling, mass and lump, head; Z79.899 Other long term (current) drug therapy
CPT/HCPCS: 36415; 70030-TC; 71045; 71275; 83735; 84100; 85025; 85610; 87400; 90937; A4663; J2270; J3490; Q9967

== ENCOUNTER 2018-04-30 14:36 | Emergency (ER) | payer MEDICARE ==
[~2018-04-30] VITALS: Ht 185.4 cm; Wt 63.5 kg
[~2018-04-30 14:36] MED LIST changes: -CALC0.5C11 PO; +DOCU100C36 PO; +HYDR-3326 PO; -HYDR2TAB4 PO; -LABE200T PO; -METH10TA2 PO; -POLY17PO4 PO; -VALS160T2 PO
--- NOTE | 2018-04-30 14:55 | NUR ---
Pt has AV shunt on LUE w/ good bruit, shay cath on LT chest wall.
[2018-04-30] MEDS ORDERED: HYDR2TAB4 PO (15:01)
[2018-04-30] MEDS ORDERED: LABE100T PO (15:01)
[2018-04-30] MEDS ORDERED: METH10TA2 PO (15:01)
[2018-04-30] MEDS ORDERED: MORPHINE SULFATE 4 MG/1 ML DISP.SYRIN ONE (15:11)
[2018-04-30] MEDS ORDERED: ONDANSETRON 4 MG/2 ML VIAL ONE (15:12)
[2018-04-30] MEDS ORDERED: MORPHINE SULFATE 4 MG/1 ML DISP.SYRIN IV ONE (15:15)
[2018-04-30] MEDS ORDERED: ASPIRIN 325 MG TABLET PO ONE (15:15)
[2018-04-30] MEDS ORDERED: ONDANSETRON 4 MG/2 ML VIAL IV ONE (15:15)
[2018-04-30 15:19] LABS: BASOPHILS # (AUTO) 0.1 K/uL (0.0-8.0); BASOPHILS % (AUTO) 0.8 % (0.0-2.0); EOSINOPHILS # (AUTO) 0.4 K/uL (0.0-0.7); EOSINOPHILS % (AUTO) 4.8 % (0.0-7.0); HEMATOCRIT 34.7 % (36.7-47.1); HEMOGLOBIN 11.4 g/dL (12.5-16.3); LYMPHOCYTES # (AUTO) 2.1 K/uL (20.0-40.0); LYMPHOCYTES % (AUTO) 23.2 % (20.5-51.5); MEAN CORPUSCULAR HGB CONC 33 g/dL (32.5-36.3); MEAN CORPUSCULAR VOLUME 88.5 fL (73.0-96.2); MONOCYTES # (AUTO) 1.2 K/uL (2.0-10.0); MONOCYTES % (AUTO) 13.3 % (0.0-11.0); NEUTROPHILS # (AUTO) 5.3 K/uL (1.8-8.9); NEUTROPHILS % (AUTO) 57.9 % (38.5-71.5); PLATELET COUNT (AUTO) 303 K/uL (152-348); RED BLOOD CELL COUNT(AUTO) 3.91 MIL/uL (4.06-5.63); WHITE BLOOD COUNT (AUTO) 9.2 K/uL (3.6-10.2)
[2018-04-30] MEDS ORDERED: ASPIRIN 325 MG TABLET ONE (15:19)
[2018-04-30] MEDS ORDERED: CLOPIDOGREL 75 MG TABLET ONE (15:22)
[2018-04-30 15:23] LABS: POTASSIUM 6.1 mmol/L (3.5-5.1)
[2018-04-30 15:26] LABS: CREATININE 9.6 mg/dL (0.6-1.3)
[2018-04-30 15:28] LABS: BILIRUBIN,TOTAL 0.4 mg/dL (0.2-1.0); TOTAL PROTEIN, SERUM 7.3 g/dL (6.4-8.2)
[2018-04-30] MEDS ORDERED: CLOPIDOGREL 75 MG TABLET PO ONE (15:30)
[2018-04-30] MEDS ORDERED: SODIUM BICARBONATE 8.4% 50 MEQ/50 ML DISP.SYRIN IV ONE ×2 (15:45→15:58)
[2018-04-30] MEDS ORDERED: CALCIUM CHLORIDE 1 GM/10 ML DISP.SYRIN IVP ONE ×2 (15:45→15:57)
[2018-04-30] MEDS ORDERED: DEXTROSE 50% 50 ML DISP.SYRIN IV ONE (15:45)
[2018-04-30] MEDS ORDERED: INSULIN REGULAR, HUMAN 1,000 UNITS/10 ML VIAL IV ONE (15:45)
[2018-04-30] MEDS ORDERED: INSULIN REGULAR, HUMAN 300 UNIT/3 ML VIAL ONE (15:58)
[2018-04-30] MEDS ORDERED: DEXTROSE 50% 50 ML DISP.SYRIN ONE (15:58)
[2018-04-30 16:03] LABS: BILIRUBIN,DIRECT 0.1 mg/dL (0.0-0.2)
--- NOTE | 2018-04-30 16:16 | NUR ---
Pt refused CTA, Dr Ambrocio aware.
--- NOTE | 2018-04-30 17:31 | NUR ---
Patient is resting comfortably in bed with eyes closed, NAD noted
--- NOTE | 2018-04-30 18:19 | NUR ---
Patient does not wish to proceed with medical care recommended by Dr. Person). Patient given information related to possible complications, up to and including , which could occur as a result of leaving the hospital at this time. Patient verbalizes understanding of risks involved due to leaving against medical advice. Patient has signed AMA form.
--- NOTE | 2018-04-30 18:20 | NUR ---
IV removed. Catheter intact and site benign. Pressure and 4x4 gauze applied to site. No bleeding noted.
[2018-04-30 18:21] VITALS: BP 130/79
--- NOTE | 2018-04-30 18:22 | NUR ---
Pt left ER w/ steady gait.
[2018-05-02] MEDS ORDERED: LABE200T PO (04:08)
== END 2018-04-30 18:23 | disposition left against medical advice (07) ==
LOC: ER 14:36
DX: R07.9 Chest pain, unspecified (principal); E87.5 Hyperkalemia; I12.0 Hypertensive chronic kidney disease with stage 5 chronic kidney disease or end stage renal disease; N18.6 End stage renal disease; Z99.2 Dependence on renal dialysis; K21.9 Gastro-esophageal reflux disease without esophagitis; Z79.899 Other long term (current) drug therapy
CPT/HCPCS: 36415; 70030-TC; 71045; 85025; 85730; 93005; A4663; J1815; J2270; J2405; J3490

== ENCOUNTER 2018-05-02 02:47 | Inpatient (IN) | payer MEDICARE ==
[~2018-05-02] VITALS: Ht 185.4 cm; Wt 67.7 kg
[~2018-05-02 02:47] MED LIST changes: -HYDR-3326 PO; +HYDR2TAB4 PO; +LABE100T5 PO; +METH10TA2 PO
[2018-05-02] MEDS ORDERED: IV NORMAL SALINE 1000 ML BAG IV ONE (03:30)
[2018-05-02 03:45] LABS: BASOPHILS # (AUTO) 0.1 K/uL (0.0-8.0); BASOPHILS % (AUTO) 0.5 % (0.0-2.0); EOSINOPHILS # (AUTO) 0.1 K/uL (0.0-0.7); EOSINOPHILS % (AUTO) 0.5 % (0.0-7.0); HEMATOCRIT 36.4 % (36.7-47.1); LYMPHOCYTES # (AUTO) 1.4 K/uL (20.0-40.0); LYMPHOCYTES % (AUTO) 12.3 % (20.5-51.5); MEAN CORPUSCULAR HEMOGLOBIN 28.8 uug (23.8-33.4); MEAN CORPUSCULAR HGB CONC 33 g/dL (32.5-36.3); MEAN CORPUSCULAR VOLUME 87.8 fL (73.0-96.2); MONOCYTES % (AUTO) 8.7 % (0.0-11.0); PLATELET COUNT (AUTO) 331 K/uL (152-348); RED BLOOD CELL COUNT(AUTO) 4.15 MIL/uL (4.06-5.63); WHITE BLOOD COUNT (AUTO) 11.6 K/uL (3.6-10.2)
[2018-05-02 04:08] LABS: POTASSIUM 8.2 mmol/L (3.5-5.1)
[2018-05-02] MEDS ORDERED: METH10TA2 PO (04:08)
[2018-05-02] MEDS ORDERED: LABE200T5 PO (04:08)
[2018-05-02 04:10] LABS: CREATININE 11.8 mg/dL (0.6-1.3)
[2018-05-02 04:11] LABS: BILIRUBIN,DIRECT 0.2 mg/dL (0.0-0.2); BILIRUBIN,TOTAL 0.6 mg/dL (0.2-1.0); TOTAL PROTEIN, SERUM 7.8 g/dL (6.4-8.2)
[2018-05-02] MEDS ORDERED: INSULIN REGULAR, HUMAN 1,000 UNITS/10 ML VIAL IV ONE (04:15)
[2018-05-02] MEDS ORDERED: DEXTROSE 50% 50 ML DISP.SYRIN IV ONE (04:15)
[2018-05-02] MEDS ORDERED: MORPHINE SULFATE 4 MG/1 ML DISP.SYRIN ONE (04:24)
[2018-05-02] MEDS ORDERED: SODIUM BICARBONATE 8.4% 50 MEQ/50 ML DISP.SYRIN IV ONE (04:25)
[2018-05-02] MEDS ORDERED: DEXTROSE 50% 50 ML DISP.SYRIN ONE (04:25)
[2018-05-02] MEDS ORDERED: MORPHINE SULFATE 4 MG/1 ML DISP.SYRIN IV ONE (04:30)
[2018-05-02] MEDS ORDERED: SODIUM BICARBONATE 8.4% 50 MEQ/50 ML VIAL IV ONE (04:30)
[2018-05-02] MEDS ORDERED: INSULIN REGULAR, HUMAN 300 UNIT/3 ML VIAL ONE (04:31)
[2018-05-02 05:10] VITALS: BP 126/84
[2018-05-02] MEDS ORDERED: MORPHINE SULFATE 2 MG/1 ML DISP.SYRIN IV PRN ×2 (06:45→11:45)
[2018-05-02] MEDS ORDERED: HYDROMORPHONE HCL 2 MG TABLET PO PRN (06:45)
[2018-05-02] MEDS: SEVELAMER CARBONATE 800 MG TABLET PO SCH ×3 (08:07→17:29)
[2018-05-02] MEDS: LABETALOL HCL 200 MG TABLET PO SCH ×2 (08:07→21:00)
[2018-05-02] MEDS: buPROPion SR 100 MG TABLET.SA PO SCH ×2 (08:07→21:08)
[2018-05-02] MEDS: DOCUSATE SODIUM 100 MG CAPSULE PO SCH (08:07)
[2018-05-02] MEDS: METHADONE HCL 10 MG TABLET PO SCH ×2 (08:07→21:09)
[2018-05-02 11:00] VITALS: BP 106/70
[2018-05-02 11:12] LABS: BILIRUBIN,TOTAL 0.5 mg/dL (0.2-1.0); MAGNESIUM 2.7 mg/dL (1.8-2.4); PHOSPHOROUS 6.3 mg/dL (2.5-4.9); TOTAL PROTEIN, SERUM 6.9 g/dL (6.4-8.2)
[2018-05-02 11:21] LABS: BASOPHILS % (AUTO) 0.4 % (0.0-2.0); EOSINOPHILS % (AUTO) 0.4 % (0.0-7.0); HEMATOCRIT 35.7 % (36.7-47.1); HEMOGLOBIN 11.8 g/dL (12.5-16.3); LYMPHOCYTES # (AUTO) 1.4 K/uL (20.0-40.0); LYMPHOCYTES % (AUTO) 24.7 % (20.5-51.5); MEAN CORPUSCULAR HEMOGLOBIN 28.9 uug (23.8-33.4); MEAN CORPUSCULAR HGB CONC 33 g/dL (32.5-36.3); MEAN CORPUSCULAR VOLUME 87.5 fL (73.0-96.2); MONOCYTES # (AUTO) 0.4 K/uL (2.0-10.0); MONOCYTES % (AUTO) 6.7 % (0.0-11.0); NEUTROPHILS # (AUTO) 3.8 K/uL (1.8-8.9); NEUTROPHILS % (AUTO) 67.8 % (38.5-71.5); PLATELET COUNT (AUTO) 278 K/uL (152-348); RED BLOOD CELL COUNT(AUTO) 4.09 MIL/uL (4.06-5.63)
[2018-05-02 11:25] LABS: WHITE BLOOD COUNT (AUTO) 5.5 K/uL (3.6-10.2)
[2018-05-02 11:37] LABS: CREATININE 10.9 mg/dL (0.6-1.3)
[2018-05-02 15:16] VITALS: BP 94/65
[2018-05-02 19:00] VITALS: BP 95/61
[2018-05-02] MEDS: MORPHINE SULFATE 4 MG/1 ML DISP.SYRIN IV PRN (22:24)
[2018-05-02] MEDS: ONDANSETRON ODT 4 MG TAB.RAPDIS SL PRN (22:24)
[2018-05-03 01:00] VITALS: BP 122/94
[2018-05-03] MEDS ORDERED: IV NORMAL SALINE 250 ML IV ONE (01:00)
[2018-05-03] MEDS ORDERED: ETOMIDATE 20 MG/10 ML VIAL MC ONE (03:29)
[2018-05-03 04:00] VITALS: BP 88/52
[2018-05-03 06:18] LABS: BASOPHILS # (AUTO) 0.1 K/uL (0.0-8.0); BASOPHILS % (AUTO) 0.7 % (0.0-2.0); EOSINOPHILS % (AUTO) 0.4 % (0.0-7.0); HEMATOCRIT 34.5 % (36.7-47.1); HEMOGLOBIN 11.3 g/dL (12.5-16.3); LYMPHOCYTES % (AUTO) 25.7 % (20.5-51.5); MEAN CORPUSCULAR HGB CONC 33 g/dL (32.5-36.3); MEAN CORPUSCULAR VOLUME 88.9 fL (73.0-96.2); MONOCYTES % (AUTO) 12.8 % (0.0-11.0); NEUTROPHILS # (AUTO) 4.7 K/uL (1.8-8.9); NEUTROPHILS % (AUTO) 60.4 % (38.5-71.5); PLATELET COUNT (AUTO) 284 K/uL (152-348); RED BLOOD CELL COUNT(AUTO) 3.88 MIL/uL (4.06-5.63); WHITE BLOOD COUNT (AUTO) 7.9 K/uL (3.6-10.2)
[2018-05-03 06:25] LABS: BILIRUBIN,TOTAL 0.4 mg/dL (0.2-1.0); MAGNESIUM 2.7 mg/dL (1.8-2.4); TOTAL PROTEIN, SERUM 6.8 g/dL (6.4-8.2)
[2018-05-03 06:39] LABS: CREATININE 10.4 mg/dL (0.6-1.3); POTASSIUM 6.8 mmol/L (3.5-5.1)
[2018-05-03] MEDS: SEVELAMER CARBONATE 800 MG TABLET PO SCH ×3 (08:00→17:24)
[2018-05-03] MEDS: DOCUSATE SODIUM 100 MG CAPSULE PO SCH (08:34)
[2018-05-03] MEDS: METHADONE HCL 10 MG TABLET PO SCH ×2 (08:37→20:59)
[2018-05-03] MEDS: buPROPion SR 100 MG TABLET.SA PO SCH ×3 (08:39→21:00)
[2018-05-03] MEDS: LABETALOL HCL 200 MG TABLET PO SCH ×2 (08:39→21:00)
[2018-05-03] MEDS: ONDANSETRON ODT 4 MG TAB.RAPDIS SL PRN ×2 (08:45→14:59)
[2018-05-03] MEDS ORDERED: PANTOPRAZOLE SODIUM 40 MG TABLET.DR PO SCH (09:00)
[2018-05-03 11:53] VITALS: BP 81/64
[2018-05-03] MEDS ORDERED: ALBUMIN HUMAN 25% 100 ML IV ONE (15:15)
[2018-05-03 15:24] VITALS: BP 80/52
[2018-05-03] MEDS ORDERED: IV NS 1000 ML 1,000 ML IV ONE (17:15)
[2018-05-03 18:58] VITALS: BP 100/46
[2018-05-03 19:28] VITALS: BP 105/56
[2018-05-03] MEDS ORDERED: FLEET ENEMA 133 ML BOTTLE RC PRN (23:15)
[2018-05-03] MEDS ORDERED: BISACODYL 10 MG SUPP.RECT RC PRN (23:15)
[2018-05-04 00:30] VITALS: BP 125/95
[2018-05-04] MEDS: MORPHINE SULFATE 4 MG/1 ML DISP.SYRIN IV PRN (00:51)
[2018-05-04] MEDS ORDERED: IV NORMAL SALINE 1000 ML BAG IV ONE (03:29)
[2018-05-04] MEDS ORDERED: SODIUM BICARBONATE 8.4% 50 MEQ/50 ML DISP.SYRIN IV ONE (03:29)
[2018-05-04] MEDS ORDERED: CALCIUM GLUCONATE 1 GM/10 ML VIAL IV ONE (03:29)
[2018-05-06 10:32] LABS: POTASSIUM 6.3 mmol/L (3.5-5.1)
== END 2018-05-04 03:30 | disposition expired | DRG 640 ==
LOC: ER 02:54 → TELE 04:00
PROVIDERS: ADMIT Internal Medicine; ATTEND Internal Medicine
PROC: 5A1D70Z Performance of Urinary Filtration, Intermittent, Less than 6 Hours Per Day (ICD-10-PCS; principal; 2018-05-02)
PROC: 5A1D70Z Performance of Urinary Filtration, Intermittent, Less than 6 Hours Per Day (ICD-10-PCS; 2018-05-03)
PROC: 0BH18EZ Insertion of Endotracheal Airway into Trachea, Via Natural or Artificial Opening Endoscopic (ICD-10-PCS; 2018-05-04)
DX: E87.5 Hyperkalemia (principal); N18.6 End stage renal disease; E43 Unspecified severe protein-calorie malnutrition; G93.41 Metabolic encephalopathy; R65.10 Systemic inflammatory response syndrome (SIRS) of non-infectious origin without acute organ dysfunction; I12.0 Hypertensive chronic kidney disease with stage 5 chronic kidney disease or end stage renal disease; Z68.1 Body mass index [BMI] 19.9 or less, adult; Z99.2 Dependence on renal dialysis; D63.8 Anemia in other chronic diseases classified elsewhere; D72.829 Elevated white blood cell count, unspecified; E88.09 Other disorders of plasma-protein metabolism, not elsewhere classified; F32.9 Major depressive disorder, single episode, unspecified; K21.9 Gastro-esophageal reflux disease without esophagitis; Z91.19 Patient's noncompliance with other medical treatment and regimen; Z93.6 Other artificial openings of urinary tract status; E87.1 Hypo-osmolality and hyponatremia; F39 Unspecified mood [affective] disorder; G89.29 Other chronic pain; I95.9 Hypotension, unspecified; N13.70 Vesicoureteral-reflux, unspecified
CPT/HCPCS: 36415; 70030-TC; 71045; 74018; 83690; 83735; 84100; 85025; 85730; 90937; 92950; 93005; A4663; J0610; J1815; J2270; J3490; J7030; J7040; P9047; Q0162